=== PATIENT | female | born 1935 | race Hispanic/Latino ===

== ENCOUNTER 2017-08-23 10:21 | Emergency (ER) | payer OTHER ==
[~2017-08-23 10:21] MED LIST: LISI-613 PO; MULT-1250 PO; PANT40TA25 PO
[2017-08-23 10:52] LABS: BASOPHILS % (AUTO) 0.4 % (0.0-5.0); EOSINOPHILS % (AUTO) 0.6 % (0.0-8.0); HEMATOCRIT 30.4 % (36-48); LYMPHOCYTES % (AUTO) 24.8 % (21.0-51.0); MEAN CORPUSCULAR HEMOGLOBIN 31.2 pg (27.0-33.0); MEAN CORPUSCULAR HGB CONC 34.1 g/dL (32.0-36.0); MEAN CORPUSCULAR VOLUME 91.4 fL (79-99); MONOCYTES % (AUTO) 7.7 % (3.0-13.0); NEUTROPHILS % (AUTO) 66.5 % (40.0-77.0); PLATELET COUNT (AUTO) 189 K/uL (130-400); RED BLOOD CELL COUNT(AUTO) 3.32 MIL/uL (4.00-5.50); RED CELL DISTRIBUTION WIDTH 13.5 % (11.0-15.5); WHITE BLOOD COUNT (AUTO) 7.2 K/uL (4.8-10.8)
[2017-08-23 10:57] LABS: CREATININE 0.9 mg/dL (0.5-1.5); POTASSIUM 4.2 mmol/L (3.5-5.1)
[2017-08-23 11:16] LABS: ALBUMIN 2.6 g/dL (3.5-5.0); BILIRUBIN,TOTAL 0.2 mg/dL (0.2-1.0); TOTAL PROTEIN, SERUM 6.6 g/dL (6.0-8.3)
[2017-08-23 11:22] LABS: CREATINE KINASE MB < 0.5 ng/mL (0.5-3.6); CREATINE KINASE, TOTAL 31 U/L (21-232)
[2017-08-23 13:29] LABS: APPEARANCE,URINE Clear (CLEAR); BILIRUBIN,URINE Negative (NEGATIVE); COLOR,URINE Yellow (YELLOW); GLUCOSE, URINE (UA) Negative (NEGATIVE); KETONES,URINE Negative (NEGATIVE); LEUKOCYTE ESTERASE ,URINE Small (NEGATIVE); NITRATE,URINE Negative (NEGATIVE); OCCULT BLOOD,URINE Small (NEGATIVE); PROTEIN,URINE Negative (NEGATIVE); UROBILINOGEN,URINE 0.2 mg/dL (0.2-1.0)
[2017-08-23 14:04] LABS: BACTERIA,URINE Rare /HPF (None Seen); SQUAMOUS EPITHELIAL CELL,UR Rare /LPF (0-2); WBC,URINE 0-1 /HPF (0-1)
== END 2017-08-23 14:36 | disposition home or self-care (01) ==
LOC: EDH 10:21
DX: R07.9 Chest pain, unspecified (principal); M79.1 Myalgia; I10 Essential (primary) hypertension; K21.9 Gastro-esophageal reflux disease without esophagitis; K50.90 Crohn's disease, unspecified, without complications; Z90.49 Acquired absence of other specified parts of digestive tract; Z98.890 Other specified postprocedural states
CPT/HCPCS: 36415; 71045; 80053; 81001; 82550; 82553; 84484; 85025; 93005

== ENCOUNTER 2017-08-28 23:27 | Observation (INO) | payer OTHER ==
[~2017-08-28] VITALS: Ht 154.9 cm; Wt 54.4 kg
[2017-08-28] MEDS ORDERED: ONDANSETRON HCL MDV 20ML 2 MG/ML VIAL ONE (23:46)
[2017-08-28] MEDS ORDERED: SODIUM CHLORIDE 0.9% 1000ML 1,000 ML IV ONE (23:46)
[2017-08-28] MEDS ORDERED: MORPHINE SULFATE 4 MG/1ML SYG ONE (23:47)
[2017-08-29 00:08] LABS: BASOPHILS % (AUTO) 0.3 % (0.0-5.0); EOSINOPHILS % (AUTO) 0.1 % (0.0-8.0); HEMATOCRIT 34.4 % (36-48); LYMPHOCYTES % (AUTO) 6.9 % (21.0-51.0); MEAN CORPUSCULAR HGB CONC 33.7 g/dL (32.0-36.0); MEAN CORPUSCULAR VOLUME 91.9 fL (79-99); MONOCYTES % (AUTO) 3.6 % (3.0-13.0); NEUTROPHILS % (AUTO) 89.1 % (40.0-77.0); PLATELET COUNT (AUTO) 201 K/uL (130-400); RED BLOOD CELL COUNT(AUTO) 3.74 MIL/uL (4.00-5.50); RED CELL DISTRIBUTION WIDTH 13.7 % (11.0-15.5); WHITE BLOOD COUNT (AUTO) 17.3 K/uL (4.8-10.8)
[2017-08-29 00:17] LABS: POTASSIUM 3.9 mmol/L (3.5-5.1)
[2017-08-29 00:19] LABS: INR 0.93 (0.85-1.15); PARTIAL THROMBOPLASTIN TIME 24.3 SEC (26.3-35.5); PROTHROMBIN TIME 9.8 SEC (9.6-11.6)
[2017-08-29 00:21] LABS: ALBUMIN 2.9 g/dL (3.5-5.0); BILIRUBIN,TOTAL 0.2 mg/dL (0.2-1.0); TOTAL PROTEIN, SERUM 7.2 g/dL (6.0-8.3)
[2017-08-29] MEDS ORDERED: CEFTRIAXONE SODIUM 2 GM VIAL ONE (03:17)
[2017-08-29] MEDS ORDERED: SODIUM CHLORIDE 0.9% 1000ML 1,000 ML IV ONE ×2 (04:09→16:59)
[2017-08-29] MEDS ORDERED: MORPHINE SULFATE 2 MG/ML 1ML SYG ONE (07:39)
[2017-08-29] MEDS ORDERED: SODIUM CHLORIDE 0.9% 1000ML 1,000 ML IV SCH (13:00)
[2017-08-29] MEDS ORDERED: DIATR MEGLU/DIATRIZOATE SODIUM 30 ML BOTTLE ONE (13:07)
[2017-08-29 16:00] VITALS: BP 139/66
[2017-08-29 16:13] LABS: HEMATOCRIT 32.3 % (36-48); MEAN CORPUSCULAR HEMOGLOBIN 31.1 pg (27.0-33.0); MEAN CORPUSCULAR HGB CONC 33.7 g/dL (32.0-36.0); MEAN CORPUSCULAR VOLUME 92.2 fL (79-99); PLATELET COUNT (AUTO) 221 K/uL (130-400); RED BLOOD CELL COUNT(AUTO) 3.51 MIL/uL (4.00-5.50); RED CELL DISTRIBUTION WIDTH 13.7 % (11.0-15.5); WHITE BLOOD COUNT (AUTO) 14.4 K/uL (4.8-10.8)
[2017-08-29] MEDS ORDERED: AMLO5TAB2 PO (17:04)
[2017-08-29] MEDS ORDERED: HYDRALAZINE HCL 20 MG/ML VIAL IV PRN (17:15)
[2017-08-29] MEDS ORDERED: MORPHINE SULFATE 2 MG/ML 1ML SYG IVP PRN (17:15)
[2017-08-29] MEDS ORDERED: ONDANSETRON HCL 4 MG/2 ML VIAL IVP PRN (17:30)
[2017-08-29] MEDS ORDERED: ACETAMINOPHEN 325 MG TAB PO PRN ×2 (17:30)
[2017-08-29] MEDS ORDERED: POTASSIUM CHLORIDE 20 MEQ ERTAB PO PRN (17:30)
[2017-08-29] MEDS ORDERED: NITROGLYCERIN 0.4 MG SL TAB SL PRN (17:30)
[2017-08-29] MEDS ORDERED: LIDOCAINE HCL-MPF 1% 2ML VIAL IJ PRN (17:30)
[2017-08-29] MEDS ORDERED: POTASSIUM CHLORIDE 10% ELIXIR 20 MEQ/15 ML UDCUP PO PRN (17:30)
[2017-08-29] MEDS ORDERED: POTASSIUM CHLORIDE 20MEQ/100ML 100 ML IV PRN (17:30)
[2017-08-29 19:35] VITALS: BP 120/57
[2017-08-29] MEDS: FAMOTIDINE/PF 20 MG/2 ML VIAL IV SCH (21:47)
[2017-08-30] VITALS (7 sets, daily range): BP systolic 110–141; BP diastolic 47–67
[2017-08-30 06:27] LABS: HEMATOCRIT 25.3 % (36-48); MEAN CORPUSCULAR HEMOGLOBIN 32.9 pg (27.0-33.0); MEAN CORPUSCULAR HGB CONC 35.4 g/dL (32.0-36.0); MEAN CORPUSCULAR VOLUME 92.8 fL (79-99); PLATELET COUNT (AUTO) 156 K/uL (130-400); RED BLOOD CELL COUNT(AUTO) 2.72 MIL/uL (4.00-5.50); RED CELL DISTRIBUTION WIDTH 13.8 % (11.0-15.5); WHITE BLOOD COUNT (AUTO) 6.9 K/uL (4.8-10.8)
[2017-08-30 06:45] LABS: CREATININE 0.9 mg/dL (0.5-1.5); POTASSIUM 3.8 mmol/L (3.5-5.1)
[2017-08-30] MEDS: FAMOTIDINE/PF 20 MG/2 ML VIAL IV SCH ×2 (09:05→20:25)
[2017-08-30] MEDS: PANTOPRAZOLE 40 MG/VIAL IVP SCH (09:28)
[2017-08-31 03:05] VITALS: BP 128/64
[2017-08-31 08:00] VITALS: BP 124/54
[2017-08-31] MEDS: FAMOTIDINE/PF 20 MG/2 ML VIAL IV SCH (08:22)
[2017-08-31] MEDS: PANTOPRAZOLE 40 MG/VIAL IVP SCH (08:23)
[2017-08-31 12:00] VITALS: BP 126/50
== END 2017-08-31 12:54 | disposition home or self-care (01) ==
LOC: EDH 23:27 → EDHIP 08-29 03:55 → 3AH 08-29 15:44
PROVIDERS: ADMIT Family Medicine; ATTEND Family Medicine
DX: K21.9 Gastro-esophageal reflux disease without esophagitis (principal); I10 Essential (primary) hypertension; Z90.49 Acquired absence of other specified parts of digestive tract; K57.90 Diverticulosis of intestine, part unspecified, without perforation or abscess without bleeding; R11.2 Nausea with vomiting, unspecified
CPT/HCPCS: 36415 ×3; 74018; 74176; 80048; 80053; 83690; 85025; 85027 ×2; 85610; 85730; 87040 ×2; 93005; 96361 ×2; 96374; 96375; 96376 ×2; 99285; C9113 ×2; G0378 ×57; J0696; J2270; J3490 ×4; J7030 ×2; Q9963

== ENCOUNTER 2017-10-05 11:31 | Emergency (ER) | payer OTHER ==
[~2017-10-05 11:31] MED LIST changes: +AMLO5TAB2 PO
[2017-10-05 11:57] LABS: APPEARANCE,URINE Clear (CLEAR); BILIRUBIN,URINE Negative (NEGATIVE); COLOR,URINE Yellow (YELLOW); GLUCOSE, URINE (UA) Negative (NEGATIVE); KETONES,URINE Negative (NEGATIVE); LEUKOCYTE ESTERASE ,URINE Negative (NEGATIVE); NITRATE,URINE Negative (NEGATIVE); OCCULT BLOOD,URINE Small (NEGATIVE); PROTEIN,URINE Negative (NEGATIVE); UROBILINOGEN,URINE 0.2 mg/dL (0.2-1.0)
[2017-10-05 12:20] LABS: BACTERIA,URINE None Seen /HPF (None Seen); RBC,URINE 0-1 /HPF (0-1); SQUAMOUS EPITHELIAL CELL,UR Rare /HPF (0-2); WBC,URINE None Seen /HPF (0-1)
[2017-10-05] MEDS ORDERED: KETOROLAC TROMETHAMINE 30MG/ML ONE (12:22)
[2017-10-05] MEDS ORDERED: SODIUM CHLORIDE 0.9% 500ML 500 ML IV ONE (12:22)
[2017-10-05 12:33] LABS: CREATININE 0.9 mg/dL (0.5-1.5); POTASSIUM 3.9 mmol/L (3.5-5.1)
[2017-10-05 12:38] LABS: ALBUMIN 2.6 g/dL (3.5-5.0); BILIRUBIN,DIRECT 0.1 mg/dL (0.0-0.3); BILIRUBIN,TOTAL 0.2 mg/dL (0.2-1.0); TOTAL PROTEIN, SERUM 6.3 g/dL (6.0-8.3)
[2017-10-05 12:45] LABS: BASOPHILS % (AUTO) 0.4 % (0.0-5.0); EOSINOPHILS % (AUTO) 0.6 % (0.0-8.0); HEMATOCRIT 29.9 % (36-48); LYMPHOCYTES % (AUTO) 20.9 % (21.0-51.0); MEAN CORPUSCULAR HEMOGLOBIN 32.2 pg (27.0-33.0); MEAN CORPUSCULAR HGB CONC 35.7 g/dL (32.0-36.0); MEAN CORPUSCULAR VOLUME 90.3 fL (79-99); MONOCYTES % (AUTO) 8.9 % (3.0-13.0); NEUTROPHILS % (AUTO) 69.2 % (40.0-77.0); PLATELET COUNT (AUTO) 199 K/uL (130-400); RED BLOOD CELL COUNT(AUTO) 3.31 MIL/uL (4.00-5.50)
[2017-10-05] MEDS ORDERED: HYDROCODONE/ACETAMINOPHEN 10/325 MG TAB ONE (13:46)
== END 2017-10-05 14:30 | disposition home or self-care (01) ==
LOC: EDH 11:31
DX: M54.5 Low back pain (principal); K21.9 Gastro-esophageal reflux disease without esophagitis; F41.9 Anxiety disorder, unspecified; K50.90 Crohn's disease, unspecified, without complications; I10 Essential (primary) hypertension; Z90.49 Acquired absence of other specified parts of digestive tract; Z98.890 Other specified postprocedural states
CPT/HCPCS: 36415; 74176; 80048; 80076; 81001; 84484; 85025; 93005; 96361; 96374; 99285; J1885; J7040

== ENCOUNTER 2018-05-25 18:59 | Emergency (ER) | payer OTHER ==
[~2018-05-25 18:59] MED LIST changes: -AMLO5TAB2 PO; +AMLO5TAB7 PO
[2018-05-25 19:50] LABS: BASOPHILS % (AUTO) 0.3 % (0.0-5.0); EOSINOPHILS % (AUTO) 0.4 % (0.0-8.0); HEMATOCRIT 30.6 % (36-48); LYMPHOCYTES % (AUTO) 10.1 % (21.0-51.0); MEAN CORPUSCULAR HEMOGLOBIN 30.8 pg (27.0-33.0); MEAN CORPUSCULAR HGB CONC 33.1 g/dL (32.0-36.0); MEAN CORPUSCULAR VOLUME 93.1 fL (79-99); NEUTROPHILS % (AUTO) 83.2 % (40.0-77.0); PLATELET COUNT (AUTO) 220 K/uL (130-400); RED BLOOD CELL COUNT(AUTO) 3.29 MIL/uL (4.00-5.50); RED CELL DISTRIBUTION WIDTH 14.5 % (11.0-15.5); WHITE BLOOD COUNT (AUTO) 11.4 K/uL (4.8-10.8)
[2018-05-25] MEDS ORDERED: IOHEXOL-350 75 ML VIAL IV ONE (19:59)
[2018-05-25] MEDS ORDERED: ONDANSETRON HCL 4 MG/2 ML VIAL ONE (20:04)
[2018-05-25] MEDS ORDERED: MORPHINE SULFATE 2 MG/ML 1ML SYG ONE (20:05)
[2018-05-25] MEDS ORDERED: FAMOTIDINE/PF 20 MG/2 ML VIAL IV ONE (20:05)
[2018-05-25 20:12] LABS: APPEARANCE,URINE Clear (CLEAR); BILIRUBIN,URINE Negative (NEGATIVE); COLOR,URINE Yellow (YELLOW); GLUCOSE, URINE (UA) Negative (NEGATIVE); KETONES,URINE Negative (NEGATIVE); LEUKOCYTE ESTERASE ,URINE Trace (NEGATIVE); NITRATE,URINE Negative (NEGATIVE); OCCULT BLOOD,URINE Moderate (NEGATIVE); PROTEIN,URINE Negative (NEGATIVE); UROBILINOGEN,URINE 0.2 mg/dL (0.2-1.0)
[2018-05-25 20:14] LABS: POTASSIUM 3.9 mmol/L (3.5-5.1)
[2018-05-25 20:26] LABS: ALBUMIN 2.9 g/dL (3.5-5.0); BILIRUBIN,TOTAL 0.2 mg/dL (0.2-1.0); TOTAL PROTEIN, SERUM 6.9 g/dL (6.0-8.3)
[2018-05-25 20:37] LABS: BACTERIA,URINE Rare /HPF (None Seen); TRICHOMONAS,URINE Rare /LPF (None Seen); WBC,URINE 0-1 /HPF (0-1)
[2018-05-25 20:47] LABS: INR 0.97 (0.85-1.15); PARTIAL THROMBOPLASTIN TIME 28.5 SEC (26.3-35.5); PROTHROMBIN TIME 10.2 SEC (9.6-11.6)
[2018-05-25 21:21] LABS: B-TYPE NATRIURETIC PEPTIDE 182 pg/mL (0-100)
[2018-05-25] MEDS ORDERED: LIDOCAINE HCL 2% VISCOUS 15 ML UDCUP ONE (21:36)
[2018-05-25] MEDS ORDERED: SODIUM CHLORIDE 0.9% 1000ML 1,000 ML IV ONE (21:37)
[2018-05-25] MEDS ORDERED: MAG HYDROX/AL HYDROX/SIMETH ES 30 ML SUSP UDCUP ONE (21:37)
== END 2018-05-25 22:52 | disposition home or self-care (01) ==
LOC: EDH 18:59
DX: R10.13 Epigastric pain (principal); K21.9 Gastro-esophageal reflux disease without esophagitis; I10 Essential (primary) hypertension; F41.9 Anxiety disorder, unspecified; Z90.49 Acquired absence of other specified parts of digestive tract; Z98.890 Other specified postprocedural states
CPT/HCPCS: 36415; 74177; 80053; 81001; 82550; 83605; 83690; 83880; 84484; 85025; 85610; 85730; 93005; 96374; 96375; 99284; J2405; J3490; J7030; Q9967

== ENCOUNTER 2018-06-12 17:50 | Emergency (ER) | payer OTHER ==
[2018-06-12] MEDS ORDERED: DEXAMETHASONE SOD PHOSPHATE 10MG/ML 1ML VIAL ONE (18:51)
== END 2018-06-12 19:36 | disposition home or self-care (01) ==
LOC: EDH 17:50
DX: L23.9 Allergic contact dermatitis, unspecified cause (principal); K21.9 Gastro-esophageal reflux disease without esophagitis; I10 Essential (primary) hypertension; F41.9 Anxiety disorder, unspecified; Z90.49 Acquired absence of other specified parts of digestive tract; Z98.890 Other specified postprocedural states; Z79.899 Other long term (current) drug therapy
CPT/HCPCS: 96372; 99283; J1100

== ENCOUNTER 2018-09-04 18:43 | Emergency (ER) | payer OTHER ==
[~2018-09-04 18:43] MED LIST changes: -AMLO5TAB7 PO; +AMLO5TAB9 PO
[2018-09-04] MEDS ORDERED: MECLIZINE HCL 25 MG TABLET ONE (19:41)
[2018-09-04 19:50] LABS: BASOPHILS % (AUTO) 0.5 % (0.0-5.0); HEMATOCRIT 28.5 % (36-48); LYMPHOCYTES % (AUTO) 18.9 % (21.0-51.0); MEAN CORPUSCULAR HEMOGLOBIN 31.1 pg (27.0-33.0); MEAN CORPUSCULAR HGB CONC 33.8 g/dL (32.0-36.0); NEUTROPHILS % (AUTO) 70.6 % (40.0-77.0); PLATELET COUNT (AUTO) 191 K/uL (130-400); RED CELL DISTRIBUTION WIDTH 13.6 % (11.0-15.5); WHITE BLOOD COUNT (AUTO) 6.8 K/uL (4.8-10.8)
[2018-09-04 20:05] LABS: INR 0.94 (0.85-1.15); PARTIAL THROMBOPLASTIN TIME 28.7 SEC (26.3-35.5); PROTHROMBIN TIME 9.9 SEC (9.6-11.6)
[2018-09-04 20:51] LABS: POTASSIUM 4.3 mmol/L (3.5-5.1)
[2018-09-04 20:54] LABS: ALBUMIN 2.7 g/dL (3.5-5.0)
[2018-09-04 21:07] LABS: BILIRUBIN,TOTAL 0.1 mg/dL (0.2-1.0); TOTAL PROTEIN, SERUM 6.5 g/dL (6.0-8.3)
== END 2018-09-04 22:00 | disposition home or self-care (01) ==
LOC: EDH 18:43
DX: I10 Essential (primary) hypertension (principal); R42 Dizziness and giddiness; K21.9 Gastro-esophageal reflux disease without esophagitis; F41.9 Anxiety disorder, unspecified; K50.90 Crohn's disease, unspecified, without complications; Z90.49 Acquired absence of other specified parts of digestive tract
CPT/HCPCS: 36415; 70450; 80053; 84484; 85025; 85610; 85730; 93005; 96360; 96361

== ENCOUNTER 2018-09-10 14:58 | Emergency (ER) | payer OTHER ==
[2018-09-10] MEDS ORDERED: ALPRAZOLAM 1 MG TAB ONE (15:30)
[2018-09-10 15:40] LABS: BASOPHILS % (AUTO) 0.4 % (0.0-5.0); EOSINOPHILS % (AUTO) 0.8 % (0.0-8.0); HEMATOCRIT 26.2 % (36-48); LYMPHOCYTES % (AUTO) 17.1 % (21.0-51.0); MEAN CORPUSCULAR HEMOGLOBIN 31.4 pg (27.0-33.0); MEAN CORPUSCULAR HGB CONC 34.1 g/dL (32.0-36.0); MEAN CORPUSCULAR VOLUME 92.1 fL (79-99); MONOCYTES % (AUTO) 9.5 % (3.0-13.0); NEUTROPHILS % (AUTO) 72.2 % (40.0-77.0); PLATELET COUNT (AUTO) 196 K/uL (130-400); RED BLOOD CELL COUNT(AUTO) 2.84 MIL/uL (4.00-5.50); RED CELL DISTRIBUTION WIDTH 13.6 % (11.0-15.5); WHITE BLOOD COUNT (AUTO) 6.3 K/uL (4.8-10.8)
[2018-09-10 15:51] LABS: POTASSIUM 3.7 mmol/L (3.5-5.1)
[2018-09-10 15:56] LABS: ALBUMIN 2.6 g/dL (3.5-5.0); BILIRUBIN,TOTAL 0.2 mg/dL (0.2-1.0); TOTAL PROTEIN, SERUM 6.1 g/dL (6.0-8.3)
[2018-09-10 17:33] LABS: CREATININE 0.9 mg/dL (0.5-1.5); POTASSIUM 4.1 mmol/L (3.5-5.1)
[2018-09-10 17:36] LABS: APPEARANCE,URINE Clear (CLEAR); BILIRUBIN,URINE Negative (NEGATIVE); COLOR,URINE Yellow (YELLOW); GLUCOSE, URINE (UA) Negative (NEGATIVE); KETONES,URINE Negative (NEGATIVE); LEUKOCYTE ESTERASE ,URINE Negative (NEGATIVE); NITRATE,URINE Negative (NEGATIVE); OCCULT BLOOD,URINE Trace (NEGATIVE); PROTEIN,URINE Negative (NEGATIVE); UROBILINOGEN,URINE 0.2 mg/dL (0.2-1.0)
[2018-09-10 17:52] LABS: RBC,URINE 0-1 /HPF (0-1); WBC,URINE 0-1 /HPF (0-1)
[2018-09-10 17:53] LABS: BACTERIA,URINE None Seen /HPF (None Seen); SQUAMOUS EPITHELIAL CELL,UR Rare /HPF (0-2); TRANSITIONAL EPI CELLS,URINE Rare /HPF (None Seen)
== END 2018-09-10 18:11 | disposition home or self-care (01) ==
LOC: EDH 14:58
DX: R51 Headache (principal); M54.2 Cervicalgia; E87.1 Hypo-osmolality and hyponatremia; I10 Essential (primary) hypertension; K21.9 Gastro-esophageal reflux disease without esophagitis; F41.9 Anxiety disorder, unspecified; Z90.49 Acquired absence of other specified parts of digestive tract
CPT/HCPCS: 36415; 80048; 80053; 81001; 84300; 84484; 85025; 93005

== ENCOUNTER 2019-02-20 14:14 | Emergency (ER) | payer OTHER ==
[2019-02-20] MEDS ORDERED: SODIUM CHLORIDE 0.9% 500ML 500 ML IV ONE (14:58)
[2019-02-20 15:02] LABS: BASOPHILS % (AUTO) 0.2 % (0.0-5.0); EOSINOPHILS % (AUTO) 1.2 % (0.0-8.0); LYMPHOCYTES % (AUTO) 14.2 % (21.0-51.0); MEAN CORPUSCULAR HEMOGLOBIN 32.3 pg (27.0-33.0); MEAN CORPUSCULAR HGB CONC 34.6 g/dL (32.0-36.0); MEAN CORPUSCULAR VOLUME 93.2 fL (79-99); MONOCYTES % (AUTO) 10.9 % (3.0-13.0); NEUTROPHILS % (AUTO) 73.5 % (40.0-77.0); PLATELET COUNT (AUTO) 182 K/uL (130-400); RED BLOOD CELL COUNT(AUTO) 2.68 MIL/uL (4.00-5.50); RED CELL DISTRIBUTION WIDTH 13.9 % (11.0-15.5); WHITE BLOOD COUNT (AUTO) 6.3 K/uL (4.8-10.8)
[2019-02-20 15:03] LABS: APPEARANCE,URINE Clear (CLEAR); BILIRUBIN,URINE Negative (NEGATIVE); COLOR,URINE Yellow (YELLOW); GLUCOSE, URINE (UA) Negative (NEGATIVE); KETONES,URINE Negative (NEGATIVE); LEUKOCYTE ESTERASE ,URINE Trace (NEGATIVE); NITRATE,URINE Negative (NEGATIVE); OCCULT BLOOD,URINE Negative (NEGATIVE); PROTEIN,URINE Negative (NEGATIVE)
[2019-02-20 15:11] LABS: CREATININE 1.2 mg/dL (0.5-1.5); POTASSIUM 4.6 mmol/L (3.5-5.1)
[2019-02-20 15:14] LABS: BACTERIA,URINE Few /HPF (None Seen); MUCUS,URINE Few LPF (None Seen); SQUAMOUS EPITHELIAL CELL,UR 0-2 /HPF (0-2)
[2019-02-20 15:16] LABS: ALBUMIN 2.4 g/dL (3.5-5.0); BILIRUBIN,TOTAL 0.2 mg/dL (0.2-1.0); TOTAL PROTEIN, SERUM 6.3 g/dL (6.0-8.3)
[2019-02-20] MEDS ORDERED: AMOXICILLIN/POTASSIUM CLAV 875-125 TABLET PO ONE (15:58)
== END 2019-02-20 17:10 | disposition home or self-care (01) ==
LOC: EDH 14:14
DX: K57.32 Diverticulitis of large intestine without perforation or abscess without bleeding (principal); K21.9 Gastro-esophageal reflux disease without esophagitis; F41.9 Anxiety disorder, unspecified; I10 Essential (primary) hypertension
CPT/HCPCS: 36415; 74176; 80053; 81001; 83690; 85025; 87088; 93005; 99285; J7040

== ENCOUNTER → 2019-04-16 | Outpatient (CLI) | payer OTHER | END | disposition home or self-care (01) | LOC: SHCH 11:08 | PROVIDERS: ATTEND Internal Medicine Cardiovascular Disease | DX: I10 Essential (primary) hypertension (principal) | CPT/HCPCS: 93306 ==

== ENCOUNTER → 2019-04-20 | Outpatient (CLI) | payer OTHER ==
[~2019-04-20] VITALS: Ht 157.5 cm; Wt 52.6 kg
[~2019-04-20] MED LIST changes: +REGADENOSON 0.4 MG/5 ML PF SYG IVP SCH
== END | disposition home or self-care (01) ==
LOC: SHCH 08:12
PROVIDERS: ATTEND Internal Medicine Cardiovascular Disease
DX: I34.1 Nonrheumatic mitral (valve) prolapse (principal)
CPT/HCPCS: 78452; 93017; 96374; A9500 ×2; J2785

== ENCOUNTER 2019-05-09 11:25 | Emergency (ER) | payer OTHER ==
[~2019-05-09 11:25] MED LIST changes: -REGADENOSON 0.4 MG/5 ML PF SYG IVP SCH
[2019-05-09] MEDS ORDERED: IPRATROPIUM/ALBUTEROL SULFATE 3 ML SOLUTION IH ONE (11:49)
[2019-05-09 12:22] LABS: APPEARANCE,URINE Clear (CLEAR); BILIRUBIN,URINE Negative (NEGATIVE); COLOR,URINE Yellow (YELLOW); GLUCOSE, URINE (UA) Negative (NEGATIVE); KETONES,URINE Negative (NEGATIVE); LEUKOCYTE ESTERASE ,URINE Negative (NEGATIVE); NITRATE,URINE Negative (NEGATIVE); OCCULT BLOOD,URINE Trace (NEGATIVE); PH,URINE 5.5 (5.0-8.0); PROTEIN,URINE Negative (NEGATIVE); UROBILINOGEN,URINE 0.2 mg/dL (0.2-1.0)
[2019-05-09 12:31] LABS: BASOPHILS % (AUTO) 0.2 % (0.0-5.0); EOSINOPHILS % (AUTO) 0.6 % (0.0-8.0); HEMATOCRIT 31.2 % (36-48); MEAN CORPUSCULAR HEMOGLOBIN 30.7 pg (27.0-33.0); MEAN CORPUSCULAR HGB CONC 33.3 g/dL (32.0-36.0); MEAN CORPUSCULAR VOLUME 92.3 fL (79-99); MONOCYTES % (AUTO) 7.7 % (3.0-13.0); NEUTROPHILS % (AUTO) 75.5 % (40.0-77.0); PLATELET COUNT (AUTO) 212 K/uL (130-400); RED BLOOD CELL COUNT(AUTO) 3.38 MIL/uL (4.00-5.50); WHITE BLOOD COUNT (AUTO) 10.1 K/uL (4.8-10.8)
[2019-05-09 12:40] LABS: CREATININE 1.1 mg/dL (0.5-1.5); POTASSIUM 4.1 mmol/L (3.5-5.1)
[2019-05-09 12:45] LABS: BACTERIA,URINE Rare /HPF (None Seen); RBC,URINE 0-1 /HPF (0-1); WBC,URINE None Seen /HPF (0-1)
[2019-05-09 12:57] LABS: ALBUMIN 3.1 g/dL (3.5-5.0); BILIRUBIN,TOTAL 0.3 mg/dL (0.2-1.0); TOTAL PROTEIN, SERUM 6.8 g/dL (6.0-8.3)
== END 2019-05-09 14:02 | disposition home or self-care (01) ==
LOC: EDH 11:25
DX: J40 Bronchitis, not specified as acute or chronic (principal); I10 Essential (primary) hypertension; K21.9 Gastro-esophageal reflux disease without esophagitis; F41.9 Anxiety disorder, unspecified; K50.90 Crohn's disease, unspecified, without complications
CPT/HCPCS: 36415; 71045; 80053; 81001; 85025; 87804; 94640

== ENCOUNTER 2019-05-27 06:41 | Day surgery (SDC) | payer OTHER ==
[2019-05-25 10:07] LABS: BASOPHILS % (AUTO) 0.1 % (0.0-5.0); LYMPHOCYTES % (AUTO) 19.5 % (21.0-51.0); MEAN CORPUSCULAR HGB CONC 32.2 g/dL (32.0-36.0); MEAN CORPUSCULAR VOLUME 92.9 fL (79-99); MONOCYTES % (AUTO) 8.1 % (3.0-13.0); NEUTROPHILS % (AUTO) 71.1 % (40.0-77.0); PLATELET COUNT (AUTO) 192 K/uL (130-400); WHITE BLOOD COUNT (AUTO) 8.1 K/uL (4.8-10.8)
[2019-05-25 10:12] LABS: CREATININE 0.9 mg/dL (0.5-1.5); POTASSIUM 4.2 mmol/L (3.5-5.1)
[2019-05-25 10:15] LABS: HEMATOCRIT 27.9 % (36-48); RED BLOOD CELL COUNT(AUTO) 3.01 MIL/uL (4.00-5.50)
[2019-05-25 10:18] LABS: APPEARANCE,URINE Clear (CLEAR); BILIRUBIN,URINE Negative (NEGATIVE); COLOR,URINE Yellow (YELLOW); GLUCOSE, URINE (UA) Negative (NEGATIVE); KETONES,URINE Negative (NEGATIVE); LEUKOCYTE ESTERASE ,URINE Trace (NEGATIVE); NITRATE,URINE Negative (NEGATIVE); OCCULT BLOOD,URINE Small (NEGATIVE); PROTEIN,URINE Negative (NEGATIVE); UROBILINOGEN,URINE 0.2 mg/dL (0.2-1.0)
[2019-05-25 10:20] LABS: INR 0.97 (0.85-1.15); PARTIAL THROMBOPLASTIN TIME 26.2 SEC (26.3-35.5); PROTHROMBIN TIME 10.2 SEC (9.6-11.6)
[2019-05-25 10:34] LABS: BACTERIA,URINE Rare /HPF (None Seen); RBC,URINE 0-1 /HPF (0-1); SQUAMOUS EPITHELIAL CELL,UR Rare /HPF (0-2); WBC,URINE 0-1 /HPF (0-1)
[2019-05-25 11:30] VITALS: BP 121/53
--- NOTE | 2019-05-26 13:00 | NUR ---
ABNORMAL LABS ABNORMAL LABS REPORTED TO EUGENIA SAXENA; H/H 8.9/27.9, UA LEUKEST TRACE. ORDERS FOR REPEAT CBC ON ARRIVAL DAY OF PROCEDURE.
[~2019-05-27] VITALS: Ht 154.9 cm; Wt 51.5 kg
[2019-05-27] VITALS (10 sets, daily range): BP systolic 129–154; BP diastolic 45–70
[~2019-05-27 06:41] MED LIST changes: +SODIUM CHLORIDE 0.9% 500ML 500 ML IV SCH
[2019-05-27] MEDS ORDERED: SODIUM CHLORIDE 0.9% 1000ML 1,000 ML IV ONE (06:52)
[2019-05-27 07:18] LABS: BASOPHILS % (AUTO) 0.1 % (0.0-5.0); EOSINOPHILS % (AUTO) 1.3 % (0.0-8.0); HEMATOCRIT 27.8 % (36-48); MEAN CORPUSCULAR HEMOGLOBIN 30.4 pg (27.0-33.0); MEAN CORPUSCULAR HGB CONC 32.7 g/dL (32.0-36.0); MONOCYTES % (AUTO) 7.7 % (3.0-13.0); NEUTROPHILS % (AUTO) 71.8 % (40.0-77.0); PLATELET COUNT (AUTO) 202 K/uL (130-400); RED BLOOD CELL COUNT(AUTO) 2.99 MIL/uL (4.00-5.50); RED CELL DISTRIBUTION WIDTH 14.2 % (11.0-15.5); WHITE BLOOD COUNT (AUTO) 7.1 K/uL (4.8-10.8)
[2019-05-27] MEDS ORDERED: LISI40TA4 PO (07:30)
[2019-05-27] MEDS ORDERED: LIDOCAINE HCL 2% 20ML ONE (08:24)
[2019-05-27] MEDS ORDERED: IOHEXOL-350 50ML VIAL IV ONE (08:24)
[2019-05-27] MEDS ORDERED: IOHEXOL 350 MG/ML 100ML INFUS..BTL IV ONE (08:24)
[2019-05-27] MEDS ORDERED: HEPARIN SODIUM 1000UNIT/ML 10ML VIAL ONE (08:24)
[2019-05-27] MEDS ORDERED: NITROGLYCERIN 5 MG/ML 10 ML VIAL IV ONE (08:24)
--- NOTE | 2019-05-27 08:35 | NUR ---
[facility] pt taken to [facility] for scheduled procedure , family at bedside
[2019-05-27] MEDS ORDERED: SODIUM CHLORIDE 0.9% 10 ML VIAL IVP SCH (09:45)
--- NOTE | 2019-05-27 10:05 | NUR ---
post received pt from [facility], s/p right / LHC , right groin with dstat , dressing dry and intact. no bleeding or hematoma to site. vs stable. pt instructed to keep bedrest for 8 hrs. plan of care discuss with patient /daughter. pt instructed to call nurse for any assitance needed or bedpan. call light within reach.
--- NOTE | 2019-05-27 12:25 | NUR ---
report report given to Michelle Anglin RN
--- NOTE | 2019-05-27 12:27 | NUR ---
md Tomasz Parish PA for DR. Bergeron paged to notify him that patient c/o urine distention, states wants to urinate , but unable because shes bedrest. awaiting for call back
--- NOTE | 2019-05-27 12:50 | NUR ---
GOT REPORT FROM ISIAH DUNHAM AT 1230, PT IN BED STABLE, C/O OF URINE URGENCY, NOTED BLADDER DISTENDED , TURN ON FACET WATER AND PLACED A WARM WASH TOWEL AND PLACED ON PT BLADDER, HOWEVER PT STILL NOT ABLE TO VOID, BENIGNO BELLO CALLED BACK AT 1250 AND NEW ORDER TO STRAIGHT CATH TIMES ONCE NOW. AT 1252 STRAIGHT CATH PATIENT AND A TOTAL OF 900CC OF URINE WAS REMOVED, PT VOICED " SHE WAS MORE RELAXED", WILL CONT TO MONITOR.
[2019-05-27] MEDS ORDERED: ACETAMINOPHEN-CODEINE 300/30MG TAB PO ONE (16:30)
== END 2019-05-27 17:55 | disposition home or self-care (01) ==
LOC: DAH 06:41
PROVIDERS: ATTEND Internal Medicine Cardiovascular Disease
DX: I20.8 Other forms of angina pectoris (principal); I35.0 Nonrheumatic aortic (valve) stenosis; K21.9 Gastro-esophageal reflux disease without esophagitis; I11.9 Hypertensive heart disease without heart failure; Z79.899 Other long term (current) drug therapy; Z72.89 Other problems related to lifestyle; Z96.642 Presence of left artificial hip joint; Z98.890 Other specified postprocedural states; Z79.01 Long term (current) use of anticoagulants; Z82.49 Family history of ischemic heart disease and other diseases of the circulatory system; Z82.3 Family history of stroke
CPT/HCPCS: 36415 ×2; 71045; 80048; 81001; 85025 ×2; 85610; 85730; 93005; 93460; A4215; A4216; A4221; A4222; A4223 ×3; A4606; A4663; C1769 ×2; C1894 ×2; J1644; J3490 ×2; J7030; Q9965; Q9967 ×2

== ENCOUNTER → 2019-11-02 | Outpatient (CLI) | payer OTHER ==
[~2019-11-02] MED LIST changes: -LISI-613 PO; +LISI40TA4 PO; -MULT-1250 PO; -SODIUM CHLORIDE 0.9% 500ML 500 ML IV SCH
== END | disposition home or self-care (01) ==
LOC: SHCH 08:43
PROVIDERS: ATTEND Internal Medicine Cardiovascular Disease
DX: R00.2 Palpitations (principal)
CPT/HCPCS: 93306; 93356

== ENCOUNTER 2020-06-12 17:09 | Inpatient (IN) | payer OTHER ==
[~2020-06-12] VITALS: Ht 157.5 cm; Wt 49.9 kg
[~2020-06-12 17:09] MED LIST changes: +AMLO-257 PO; -AMLO5TAB9 PO; -LISI40TA4 PO; +LISI40TA9 PO; -PANT40TA25 PO; +PANT40TA54 PO
[2020-06-12 17:34] LABS: ABG BASE EXCESS -1.6 mmol/L (-2.0-3.0); ABG HCO3 19.7 mmol/L (21.0-28.0); ABG OXYGEN SATURATION 80.2 % (95.0-99.0); ABG PCO2 26 mmHg (32-45)
[2020-06-12 17:36] LABS: EOSINOPHILS % (AUTO) 0.1 % (0.0-8.0); HEMATOCRIT 28.7 % (36-48); LYMPHOCYTES % (AUTO) 5.4 % (21.0-51.0); MEAN CORPUSCULAR HEMOGLOBIN 30.9 pg (27.0-33.0); MEAN CORPUSCULAR HGB CONC 33.1 g/dL (32.0-36.0); MEAN CORPUSCULAR VOLUME 93.5 fL (79-99); MONOCYTES % (AUTO) 2.1 % (3.0-13.0); PLATELET COUNT (AUTO) 171 K/uL (130-400); RED BLOOD CELL COUNT(AUTO) 3.07 MIL/uL (4.00-5.50); RED CELL DISTRIBUTION WIDTH 14.1 % (11.0-15.5); WHITE BLOOD COUNT (AUTO) 9.1 K/uL (4.8-10.8)
[2020-06-12 17:51] LABS: INR 1.07 (0.85-1.15); PROTHROMBIN TIME 11.4 SEC (9.6-11.6)
[2020-06-12 17:52] LABS: PARTIAL THROMBOPLASTIN TIME 30.2 SEC (26.3-35.5)
[2020-06-12 17:56] LABS: CREATININE 0.9 mg/dL (0.5-1.5)
[2020-06-12 18:00] LABS: BILIRUBIN,TOTAL 0.5 mg/dL (0.2-1.0); TOTAL PROTEIN, SERUM 6.4 g/dL (6.0-8.3)
[2020-06-12] MEDS ORDERED: DEXAMETHASONE SOD PHOSPHATE 4 MG/ML 1ML VIAL IVP STA (18:44)
[2020-06-12] MEDS ORDERED: LACTULOSE 20 GM/30 ML UDCUP PO PRN (18:45)
[2020-06-12] MEDS ORDERED: PHARMACY COMMUNICATION***REMDESIVIR ORDER MISC SCH (18:45)
[2020-06-12] MEDS ORDERED: ERGOCALCIFEROL (VITAMIN D2) 50,000 UNIT CAPSULE PO ONE (18:45)
[2020-06-12] MEDS: DEXAMETHASONE SOD PHOSPHATE 4 MG/ML 1ML VIAL IVP SCH (18:45)
[2020-06-12] MEDS ORDERED: KCL 20 MEQ ERTAB PO PRN (18:45)
[2020-06-12] MEDS ORDERED: ONDANSETRON 4MG INJ IV PRN (18:45)
[2020-06-12] MEDS ORDERED: LIDOCAINE HCL-MPF 1% 2ML VIAL IV PRN (18:45)
[2020-06-12] MEDS ORDERED: DOXYCYCLINE 100MG+NS 250ML IV SCH (18:45)
[2020-06-12] MEDS ORDERED: POTASSIUM CHLORIDE 10MEQ/100ML 100 ML IV PRN (18:45)
[2020-06-12] MEDS: CEFTRIAXONE 1G VIAL IVP SCH (18:45)
[2020-06-12] MEDS ORDERED: ACETAMINOPHEN 325 MG TAB PO PRN ×2 (18:45)
[2020-06-12] MEDS ORDERED: SOLU-MEDROL 40MG VIAL ONE (18:48)
[2020-06-12] MEDS ORDERED: AZITHROMYCIN 500MG+NS 250ML 250 ML IV ONE ×2 (18:49→18:50)
[2020-06-12] MEDS ORDERED: 0.9%NACL 1000ML 1,000 ML IV ONE (18:49)
[2020-06-12] MEDS ORDERED: ALBUTEROL INHALER 90MCG/INH IH ONE (18:50)
[2020-06-12] MEDS ORDERED: IOHEXOL 350 MG/ML 100ML INFUS..BTL IV ONE (19:05)
[2020-06-12 20:26] LABS: CRP QUANTITATIVE 356.2 mg/L (0.00-9.0)
[2020-06-12] MEDS ORDERED: ENOXAPARIN SODIUM 60 MG/0.6 ML SQ SCH (21:00)
[2020-06-12] MEDS: DOXYCYCLINE 100MG+NS 250ML 250 ML IV SCH (21:00)
[2020-06-12] MEDS: ALBUTEROL INHALER 90MCG/INH IH SCH (22:00)
[2020-06-13] MEDS ORDERED: ERGOCALCIFEROL (VITAMIN D2) 50,000 UNIT CAPSULE ONE (01:37)
[2020-06-13] MEDS ORDERED: DEXAMETHASONE SOD PHOSPHATE 10MG/ML 1ML VIAL ONE ×2 (01:37→17:34)
[2020-06-13] MEDS ORDERED: DOXYCYCLINE 100MG+NS 250ML 250 ML IV ONE ×2 (01:37→22:05)
[2020-06-13] MEDS ORDERED: CEFTRIAXONE 1G VIAL ONE ×2 (01:38→17:34)
[2020-06-13] MEDS ORDERED: FAMOTIDINE 20MG VIAL IV ONE ×2 (01:38→09:18)
[2020-06-13] MEDS ORDERED: ALBUTEROL INHALER 90MCG/INH IH ONE (01:58)
[2020-06-13] MEDS: ALBUTEROL INHALER 90MCG/INH IH SCH ×6 (02:00→22:00)
[2020-06-13 03:49] LABS: ABG BASE EXCESS -3.2 mmol/L (-2.0-3.0); ABG HCO3 19.7 mmol/L (21.0-28.0); ABG OXYGEN SATURATION 97.7 % (95.0-99.0); ABG PCO2 30 mmHg (32-45)
[2020-06-13 04:51] LABS: HEMATOCRIT 25.6 % (36-48); LYMPHOCYTES % (AUTO) 6.7 % (21.0-51.0); MEAN CORPUSCULAR HEMOGLOBIN 30.5 pg (27.0-33.0); MEAN CORPUSCULAR HGB CONC 32.4 g/dL (32.0-36.0); MEAN CORPUSCULAR VOLUME 94.1 fL (79-99); MONOCYTES % (AUTO) 0.8 % (3.0-13.0); NEUTROPHILS % (AUTO) 92.2 % (40.0-77.0); PLATELET COUNT (AUTO) 162 K/uL (130-400); RED BLOOD CELL COUNT(AUTO) 2.72 MIL/uL (4.00-5.50); RED CELL DISTRIBUTION WIDTH 13.9 % (11.0-15.5)
[2020-06-13 05:10] LABS: ALBUMIN 1.9 g/dL (3.5-5.0); BILIRUBIN,TOTAL 0.4 mg/dL (0.2-1.0); CREATININE 0.9 mg/dL (0.5-1.5); POTASSIUM 3.3 mmol/L (3.5-5.1)
[2020-06-13 06:41] LABS: CRP QUANTITATIVE 118.1 mg/L (0.00-9.0)
[2020-06-13] MEDS: CEFTRIAXONE 1G VIAL IVP SCH ×2 (06:45→18:45)
[2020-06-13] MEDS ORDERED: FAMOTIDINE 20MG VIAL IV SCH (09:00)
[2020-06-13] MEDS: ASCORBIC ACID 500 MG TAB PO SCH (09:00)
[2020-06-13] MEDS: DOXYCYCLINE 100MG+NS 250ML 250 ML IV SCH ×2 (09:00→21:00)
[2020-06-13] MEDS: ZINC SULFATE 220 CAPSULE PO SCH (09:00)
[2020-06-13] MEDS ORDERED: ENOXAPARIN SODIUM 60 MG/0.6 ML SQ ONE ×2 (09:17→22:05)
[2020-06-13] MEDS ORDERED: DOXYCYCLINE HYCLATE 100 MG TABLET PO ONE (09:17)
[2020-06-13] MEDS ORDERED: ZINC SULFATE 220 CAPSULE ONE (09:18)
[2020-06-13] MEDS ORDERED: POTASSIUM CHLORIDE 10% ELIXIR 20 MEQ/15 ML UDCUP ONE (09:27)
[2020-06-13] MEDS ORDERED: ONDANSETRON 4MG INJ ONE (09:43)
[2020-06-13] MEDS ORDERED: ALPRAZOLAM 0.25 MG TABLET ONE (17:34)
[2020-06-13] MEDS ORDERED: DEXTROSE 5%-LACTATED RINGERS 1,000 ML IV SCH (18:30)
[2020-06-13] MEDS: DEXAMETHASONE SOD PHOSPHATE 4 MG/ML 1ML VIAL IVP SCH (18:45)
[2020-06-14] MEDS: ALBUTEROL INHALER 90MCG/INH IH SCH ×6 (02:00→22:00)
[2020-06-14 04:34] LABS: BASOPHILS % (AUTO) 0.1 % (0.0-5.0); LYMPHOCYTES % (AUTO) 3.4 % (21.0-51.0); MEAN CORPUSCULAR HEMOGLOBIN 30.6 pg (27.0-33.0); MEAN CORPUSCULAR HGB CONC 32.6 g/dL (32.0-36.0); MEAN CORPUSCULAR VOLUME 93.9 fL (79-99); PLATELET COUNT (AUTO) 181 K/uL (130-400); RED BLOOD CELL COUNT(AUTO) 2.45 MIL/uL (4.00-5.50); RED CELL DISTRIBUTION WIDTH 13.9 % (11.0-15.5); WHITE BLOOD COUNT (AUTO) 12.7 K/uL (4.8-10.8)
[2020-06-14 04:50] LABS: ALBUMIN 1.6 g/dL (3.5-5.0); BILIRUBIN,TOTAL 0.2 mg/dL (0.2-1.0); CRP QUANTITATIVE 146.9 mg/L (0.00-9.0); POTASSIUM 3.8 mmol/L (3.5-5.1); TOTAL PROTEIN, SERUM 5.1 g/dL (6.0-8.3)
[2020-06-14] MEDS: CEFTRIAXONE 1G VIAL IVP SCH ×2 (06:45→18:45)
[2020-06-14] MEDS ORDERED: DOXYCYCLINE 100MG+NS 250ML 250 ML IV ONE ×2 (08:55→22:01)
[2020-06-14] MEDS ORDERED: ZINC SULFATE 220 CAPSULE ONE (08:55)
[2020-06-14] MEDS ORDERED: ASCORBIC ACID 500 MG TAB ONE (08:55)
[2020-06-14] MEDS ORDERED: ENOXAPARIN SODIUM 60 MG/0.6 ML SQ ONE ×2 (08:55→22:01)
[2020-06-14] MEDS ORDERED: FAMOTIDINE 20MG VIAL IV ONE (08:56)
[2020-06-14] MEDS: DOXYCYCLINE 100MG+NS 250ML 250 ML IV SCH ×2 (09:00→21:00)
[2020-06-14] MEDS: ZINC SULFATE 220 CAPSULE PO SCH (09:00)
[2020-06-14] MEDS: ASCORBIC ACID 500 MG TAB PO SCH (09:00)
[2020-06-14] MEDS: HYDROMORPHONE HCL 2 MG TAB PO SCH (15:30)
[2020-06-14] MEDS ORDERED: COMPOUND IV REFRIGERATED 1 EACH IVSOLN MISC PRN (15:45)
[2020-06-14] MEDS ORDERED: REMDESIVIR (EUA) 520 200 MG in 0.9% NACL 250ML 250 ML IV SCH (16:00)
[2020-06-14] MEDS ORDERED: ALPRAZOLAM 0.25 MG TABLET ONE (17:24)
[2020-06-14] MEDS ORDERED: DEXAMETHASONE SOD PHOSPHATE 10MG/ML 1ML VIAL ONE (17:49)
[2020-06-14] MEDS ORDERED: CEFTRIAXONE 1G VIAL ONE (17:49)
[2020-06-14] MEDS: DEXAMETHASONE SOD PHOSPHATE 4 MG/ML 1ML VIAL IVP SCH (18:45)
[2020-06-15] MEDS: ALBUTEROL INHALER 90MCG/INH IH SCH ×6 (02:00→22:00)
[2020-06-15] MEDS: HYDROMORPHONE HCL 2 MG TAB PO SCH ×2 (03:30→15:30)
[2020-06-15 05:33] LABS: BASOPHILS % (AUTO) 0.1 % (0.0-5.0); HEMATOCRIT 21.7 % (36-48); MEAN CORPUSCULAR HEMOGLOBIN 30.6 pg (27.0-33.0); MEAN CORPUSCULAR HGB CONC 33.2 g/dL (32.0-36.0); MEAN CORPUSCULAR VOLUME 92.3 fL (79-99); MONOCYTES % (AUTO) 2.2 % (3.0-13.0); NEUTROPHILS % (AUTO) 92.3 % (40.0-77.0); PLATELET COUNT (AUTO) 146 K/uL (130-400); RED BLOOD CELL COUNT(AUTO) 2.35 MIL/uL (4.00-5.50); RED CELL DISTRIBUTION WIDTH 13.8 % (11.0-15.5); WHITE BLOOD COUNT (AUTO) 7.6 K/uL (4.8-10.8)
[2020-06-15 05:59] LABS: ALBUMIN 1.7 g/dL (3.5-5.0); BILIRUBIN,TOTAL 0.2 mg/dL (0.2-1.0); CREATININE 0.8 mg/dL (0.5-1.5); CRP QUANTITATIVE 107.9 mg/L (0.00-9.0); POTASSIUM 3.3 mmol/L (3.5-5.1); TOTAL PROTEIN, SERUM 5.1 g/dL (6.0-8.3)
[2020-06-15] MEDS: PHARMACY COMMUNICATION MISC SCH (06:00)
[2020-06-15] MEDS: CEFTRIAXONE 1G VIAL IVP SCH ×2 (06:45→18:45)
[2020-06-15] MEDS: DOXYCYCLINE 100MG+NS 250ML 250 ML IV SCH ×2 (09:00→21:00)
[2020-06-15] MEDS: ZINC SULFATE 220 CAPSULE PO SCH (09:00)
[2020-06-15] MEDS: ASCORBIC ACID 500 MG TAB PO SCH (09:00)
[2020-06-15] MEDS ORDERED: ENOXAPARIN SODIUM 60 MG/0.6 ML SQ ONE (10:22)
[2020-06-15] MEDS ORDERED: ASCORBIC ACID 500 MG TAB ONE (10:22)
[2020-06-15] MEDS ORDERED: ZINC SULFATE 220 CAPSULE ONE (10:23)
[2020-06-15] MEDS ORDERED: DOXYCYCLINE 100MG+NS 250ML 250 ML IV ONE ×2 (10:23→21:11)
[2020-06-15] MEDS ORDERED: FAMOTIDINE 20MG TAB ONE (10:23)
[2020-06-15] MEDS ORDERED: CEFTRIAXONE 1G VIAL ONE (10:24)
[2020-06-15] MEDS ORDERED: ALPRAZOLAM 0.25 MG TABLET ONE (10:32)
[2020-06-15] MEDS: PANTOPRAZOLE 40 MG/VIAL IVP SCH (10:45)
[2020-06-15] MEDS ORDERED: PHARMACY COMMUNICATION MISC SCH (11:00)
[2020-06-15] MEDS ORDERED: ENOXAPARIN SODIUM 60 MG/0.6 ML SQ SCH (11:00)
[2020-06-15 11:41] LABS: % IRON SATURATION 13.5 % (22-44)
[2020-06-15 12:02] LABS: HEMATOCRIT 24.7 % (36-48)
[2020-06-15] MEDS: REMDESIVIR (EUA) 520 100 MG in 0.9% NACL 250ML 250 ML IV SCH (16:00)
[2020-06-15] MEDS: DEXAMETHASONE SOD PHOSPHATE 4 MG/ML 1ML VIAL IVP SCH (18:45)
[2020-06-15 18:56] LABS: HEMATOCRIT 23.5 % (36-48)
[2020-06-16] MEDS ORDERED: METOPROLOL TARTRATE 1 MG/ML 5ML VIAL IV PRN (00:30)
[2020-06-16] MEDS ORDERED: ALPRAZOLAM 0.5 MG TABLET PO ONE (00:30)
[2020-06-16] MEDS ORDERED: KCL 20 MEQ ERTAB PO ONE (00:46)
[2020-06-16] MEDS ORDERED: ALPRAZOLAM 1 MG TAB ONE (00:48)
[2020-06-16] MEDS: ALBUTEROL INHALER 90MCG/INH IH SCH ×6 (02:00→22:00)
[2020-06-16] MEDS: HYDROMORPHONE HCL 2 MG TAB PO SCH ×2 (03:30→15:30)
[2020-06-16] MEDS: PHARMACY COMMUNICATION MISC SCH (06:00)
[2020-06-16] MEDS: CEFTRIAXONE 1G VIAL IVP SCH ×2 (06:45→18:45)
[2020-06-16] MEDS ORDERED: PANTOPRAZOLE 40 MG/VIAL ONE (08:49)
[2020-06-16] MEDS ORDERED: ZINC SULFATE 220 CAPSULE ONE (08:49)
[2020-06-16] MEDS ORDERED: DOXYCYCLINE 100MG+NS 250ML 250 ML IV ONE ×2 (08:49→20:54)
[2020-06-16] MEDS ORDERED: ASCORBIC ACID 500 MG TAB ONE (08:49)
[2020-06-16] MEDS: ENOXAPARIN SODIUM 60 MG/0.6 ML SQ SCH (09:00)
[2020-06-16] MEDS: DOXYCYCLINE 100MG+NS 250ML 250 ML IV SCH ×2 (09:00→21:00)
[2020-06-16] MEDS: IRON SUCROSE COMPLEX 100 MG in 0.9%NACL 50ML 50 ML IV SCH (09:00)
[2020-06-16] MEDS: PANTOPRAZOLE 40 MG/VIAL IVP SCH ×2 (09:00→10:45)
[2020-06-16] MEDS: ASCORBIC ACID 500 MG TAB PO SCH (09:00)
[2020-06-16] MEDS: ZINC SULFATE 220 CAPSULE PO SCH (09:00)
[2020-06-16 12:41] LABS: ALBUMIN 1.8 g/dL (3.5-5.0); BILIRUBIN,TOTAL 0.3 mg/dL (0.2-1.0); CREATININE 0.8 mg/dL (0.5-1.5); POTASSIUM 3.3 mmol/L (3.5-5.1); TOTAL PROTEIN, SERUM 5.5 g/dL (6.0-8.3)
[2020-06-16] MEDS: REMDESIVIR (EUA) 520 100 MG in 0.9% NACL 250ML 250 ML IV SCH (16:00)
[2020-06-16] MEDS ORDERED: ALPRAZOLAM 0.25 MG TABLET ONE (16:32)
[2020-06-16] MEDS ORDERED: ALBUTEROL INHALER 90MCG/INH IH ONE (17:56)
[2020-06-16] MEDS ORDERED: CEFTRIAXONE 1G VIAL ONE (17:57)
[2020-06-16] MEDS ORDERED: DEXAMETHASONE SOD PHOSPHATE 10MG/ML 1ML VIAL ONE (17:57)
[2020-06-16] MEDS: DEXAMETHASONE SOD PHOSPHATE 4 MG/ML 1ML VIAL IVP SCH (18:45)
[2020-06-17] VITALS (8 sets, daily range): BP systolic 105–164; BP diastolic 50–79
[2020-06-17] MEDS: KCL 20 MEQ ERTAB PO SCH ×3 (00:30→21:42)
[2020-06-17] MEDS: ALBUTEROL INHALER 90MCG/INH IH SCH ×6 (02:00→22:00)
[2020-06-17] MEDS: HYDROMORPHONE HCL 2 MG TAB PO SCH ×2 (03:30→14:52)
[2020-06-17] MEDS: CEFTRIAXONE 1G VIAL IVP SCH ×2 (05:38→22:50)
[2020-06-17] MEDS: PHARMACY COMMUNICATION MISC SCH (06:00)
[2020-06-17 06:04] LABS: HEMATOCRIT 22.6 % (36-48); LYMPHOCYTES % (AUTO) 4.9 % (21.0-51.0); MEAN CORPUSCULAR HEMOGLOBIN 30.2 pg (27.0-33.0); MEAN CORPUSCULAR HGB CONC 32.7 g/dL (32.0-36.0); MEAN CORPUSCULAR VOLUME 92.2 fL (79-99); MONOCYTES % (AUTO) 2.3 % (3.0-13.0); NEUTROPHILS % (AUTO) 92.2 % (40.0-77.0); PLATELET COUNT (AUTO) 115 K/uL (130-400); RED BLOOD CELL COUNT(AUTO) 2.45 MIL/uL (4.00-5.50); RED CELL DISTRIBUTION WIDTH 13.9 % (11.0-15.5); WHITE BLOOD COUNT (AUTO) 6.9 K/uL (4.8-10.8)
[2020-06-17 06:31] LABS: ALBUMIN 1.7 g/dL (3.5-5.0); BILIRUBIN,TOTAL 0.3 mg/dL (0.2-1.0); CREATININE 0.8 mg/dL (0.5-1.5); POTASSIUM 3.1 mmol/L (3.5-5.1); TOTAL PROTEIN, SERUM 5.2 g/dL (6.0-8.3)
[2020-06-17] MEDS: PANTOPRAZOLE 40 MG/VIAL IVP SCH ×2 (09:25→09:52)
[2020-06-17] MEDS: ASCORBIC ACID 500 MG TAB PO SCH (09:27)
[2020-06-17] MEDS: ZINC SULFATE 220 CAPSULE PO SCH (09:27)
[2020-06-17] MEDS: ENOXAPARIN SODIUM 60 MG/0.6 ML SQ SCH (09:28)
[2020-06-17] MEDS: DOXYCYCLINE 100MG+NS 250ML 250 ML IV SCH ×2 (09:29→21:00)
[2020-06-17] MEDS: POTASSIUM CHLORIDE 10% ELIXIR 20 MEQ/15 ML UDCUP PO PRN ×3 (09:58→14:25)
[2020-06-17] MEDS: IRON SUCROSE COMPLEX 100 MG in 0.9%NACL 50ML 50 ML IV SCH (10:27)
[2020-06-17] MEDS: REMDESIVIR (EUA) 520 100 MG in 0.9% NACL 250ML 250 ML IV SCH (15:47)
[2020-06-17] MEDS: NYSTATIN 100000 UNIT/ML 5ML UDCUP PO SCH ×2 (15:47→23:01)
[2020-06-17] MEDS: ALPRAZOLAM 0.5 MG TABLET PO PRN (21:40)
[2020-06-17] MEDS: DEXAMETHASONE SOD PHOSPHATE 4 MG/ML 1ML VIAL IVP SCH (22:46)
[2020-06-18 03:49] VITALS: BP 162/77
[2020-06-18 06:11] LABS: BASOPHILS % (AUTO) 0.1 % (0.0-5.0); LYMPHOCYTES % (AUTO) 3.2 % (21.0-51.0); MEAN CORPUSCULAR HEMOGLOBIN 30.9 pg (27.0-33.0); MEAN CORPUSCULAR VOLUME 90.9 fL (79-99); MONOCYTES % (AUTO) 1.5 % (3.0-13.0); NEUTROPHILS % (AUTO) 94.5 % (40.0-77.0); PLATELET COUNT (AUTO) 100 K/uL (130-400); RED BLOOD CELL COUNT(AUTO) 2.75 MIL/uL (4.00-5.50); RED CELL DISTRIBUTION WIDTH 14.4 % (11.0-15.5); WHITE BLOOD COUNT (AUTO) 9.7 K/uL (4.8-10.8)
[2020-06-18] MEDS: CEFTRIAXONE 1G VIAL IVP SCH ×2 (06:25→19:16)
[2020-06-18] MEDS: HYDROMORPHONE HCL 2 MG TAB PO SCH ×2 (06:25→15:30)
[2020-06-18] MEDS: NYSTATIN 100000 UNIT/ML 5ML UDCUP PO SCH ×3 (06:25→21:22)
[2020-06-18 06:40] LABS: ALBUMIN 1.8 g/dL (3.5-5.0); BILIRUBIN,TOTAL 0.5 mg/dL (0.2-1.0); CREATININE 0.7 mg/dL (0.5-1.5); POTASSIUM 4.1 mmol/L (3.5-5.1)
[2020-06-18 07:18] LABS: CRP QUANTITATIVE 163.7 mg/L (0.00-9.0)
[2020-06-18] MEDS: FLUCONAZOLE 200 MG/NS 100 ML 100 ML IV SCH (08:00)
[2020-06-18] MEDS: ZINC SULFATE 220 CAPSULE PO SCH (08:00)
[2020-06-18] MEDS: ASCORBIC ACID 500 MG TAB PO SCH (08:00)
[2020-06-18] MEDS: PANTOPRAZOLE 40 MG/VIAL IVP SCH ×3 (08:13→21:00)
[2020-06-18 08:27] VITALS: BP 158/65
[2020-06-18] MEDS: IRON SUCROSE COMPLEX 100 MG in 0.9%NACL 50ML 50 ML IV SCH (09:38)
[2020-06-18] MEDS: DOXYCYCLINE 100MG+NS 250ML 250 ML IV SCH ×2 (10:14→21:20)
[2020-06-18] MEDS ORDERED: COMPOUND IV MISC 1 EACH IVSOLN MISC PRN (11:15)
[2020-06-18 12:15] VITALS: BP 148/63
[2020-06-18] MEDS: FUROSEMIDE 40MG VIAL IV SCH (15:14)
[2020-06-18] MEDS: REMDESIVIR (EUA) 520 100 MG in 0.9% NACL 250ML 250 ML IV SCH (15:14)
[2020-06-18 16:25] VITALS: BP 157/66
[2020-06-18] MEDS: ALPRAZOLAM 0.5 MG TABLET PO PRN (18:50)
[2020-06-18 19:00] VITALS: BP 148/67
[2020-06-18] MEDS: DEXAMETHASONE SOD PHOSPHATE 4 MG/ML 1ML VIAL IVP SCH (19:17)
[2020-06-18] MEDS: ENOXAPARIN SODIUM 40 MG/0.4 ML SYRINGE SQ SCH (21:21)
[2020-06-18] MEDS: ALBUTEROL INHALER 90MCG/INH IH SCH (21:51)
[2020-06-18] MEDS: KCL 20 MEQ ERTAB PO SCH (22:02)
[2020-06-18 23:00] VITALS: BP 144/75
[2020-06-19] MEDS: FUROSEMIDE 40MG VIAL IV SCH (02:36)
[2020-06-19] MEDS: ALBUTEROL INHALER 90MCG/INH IH SCH ×6 (02:37→21:09)
[2020-06-19 03:00] VITALS: BP 135/69
[2020-06-19] MEDS: HYDROMORPHONE HCL 2 MG TAB PO SCH ×2 (03:30→15:30)
[2020-06-19 04:53] LABS: HEMATOCRIT 25.3 % (36-48); LYMPHOCYTES % (AUTO) 3.9 % (21.0-51.0); MEAN CORPUSCULAR HGB CONC 32.8 g/dL (32.0-36.0); MEAN CORPUSCULAR VOLUME 91.3 fL (79-99); MONOCYTES % (AUTO) 2.6 % (3.0-13.0); NEUTROPHILS % (AUTO) 92.7 % (40.0-77.0); PLATELET COUNT (AUTO) 101 K/uL (130-400); RED BLOOD CELL COUNT(AUTO) 2.77 MIL/uL (4.00-5.50); RED CELL DISTRIBUTION WIDTH 14.5 % (11.0-15.5); WHITE BLOOD COUNT (AUTO) 9.6 K/uL (4.8-10.8)
[2020-06-19 05:09] LABS: ALBUMIN 1.7 g/dL (3.5-5.0); BILIRUBIN,TOTAL 0.2 mg/dL (0.2-1.0); CREATININE 1.1 mg/dL (0.5-1.5); CRP QUANTITATIVE 120.7 mg/L (0.00-9.0); MAGNESIUM 1.7 mg/dL (1.80-2.40); PHOSPHORUS 2.9 mg/dL (2.5-4.9); POTASSIUM 4.5 mmol/L (3.5-5.1); TOTAL PROTEIN, SERUM 4.8 g/dL (6.0-8.3)
[2020-06-19] MEDS: CEFTRIAXONE 1G VIAL IVP SCH (05:55)
[2020-06-19] MEDS: NYSTATIN 100000 UNIT/ML 5ML UDCUP PO SCH ×3 (05:55→21:09)
[2020-06-19] MEDS: FLUCONAZOLE 200 MG/NS 100 ML 100 ML IV SCH (08:02)
[2020-06-19] MEDS: ASCORBIC ACID 500 MG TAB PO SCH (08:02)
[2020-06-19] MEDS: ZINC SULFATE 220 CAPSULE PO SCH (08:02)
[2020-06-19] MEDS: ENOXAPARIN SODIUM 40 MG/0.4 ML SYRINGE SQ SCH (08:04)
[2020-06-19 08:44] VITALS: BP 141/72
[2020-06-19] MEDS: DOXYCYCLINE 100MG+NS 250ML 250 ML IV SCH ×2 (09:56→21:08)
[2020-06-19] MEDS: PANTOPRAZOLE 40 MG/VIAL IVP SCH ×2 (10:11→21:08)
[2020-06-19] MEDS: IRON SUCROSE COMPLEX 100 MG in 0.9%NACL 50ML 50 ML IV SCH (11:21)
[2020-06-19 12:09] VITALS: BP 147/66
[2020-06-19] MEDS: ENOXAPARIN SODIUM 30 MG/0.3 ML SQ SCH ×2 (12:15→21:09)
[2020-06-19 16:38] VITALS: BP 125/68
[2020-06-19] MEDS: DEXAMETHASONE SOD PHOSPHATE 4 MG/ML 1ML VIAL IVP SCH (17:54)
[2020-06-19] MEDS: ALPRAZOLAM 0.5 MG TABLET PO PRN (18:53)
[2020-06-19 20:20] VITALS: BP 131/62
[2020-06-20] VITALS (7 sets, daily range): BP systolic 116–143; BP diastolic 54–80
[2020-06-20] MEDS: KCL 20 MEQ ERTAB PO SCH (00:30)
[2020-06-20] MEDS: ALBUTEROL INHALER 90MCG/INH IH SCH ×6 (02:00→21:28)
[2020-06-20] MEDS: NYSTATIN 100000 UNIT/ML 5ML UDCUP PO SCH ×3 (06:28→21:20)
[2020-06-20] MEDS: FLUCONAZOLE 200 MG/NS 100 ML 100 ML IV SCH (08:40)
[2020-06-20] MEDS: PANTOPRAZOLE 40 MG/VIAL IVP SCH ×2 (10:12→21:20)
[2020-06-20] MEDS: ZINC SULFATE 220 CAPSULE PO SCH (10:13)
[2020-06-20] MEDS: ENOXAPARIN SODIUM 30 MG/0.3 ML SQ SCH (10:13)
[2020-06-20] MEDS: IRON SUCROSE COMPLEX 100 MG in 0.9%NACL 50ML 50 ML IV SCH (10:13)
[2020-06-20] MEDS: ASCORBIC ACID 500 MG TAB PO SCH (10:13)
[2020-06-20] MEDS: DOXYCYCLINE 100MG+NS 250ML 250 ML IV SCH ×2 (11:24→21:18)
[2020-06-20] MEDS: ALPRAZOLAM 0.5 MG TABLET PO PRN (16:01)
[2020-06-20] MEDS: DEXAMETHASONE SOD PHOSPHATE 4 MG/ML 1ML VIAL IVP SCH (18:52)
[2020-06-20] MEDS: ENOXAPARIN SODIUM 40 MG/0.4 ML SYRINGE SQ SCH (21:19)
[2020-06-21] MEDS: KCL 20 MEQ ERTAB PO SCH (00:30)
[2020-06-21] MEDS: ALBUTEROL INHALER 90MCG/INH IH SCH ×6 (02:00→21:50)
[2020-06-21 03:11] VITALS: BP 136/59
[2020-06-21 05:39] LABS: BASOPHILS % (AUTO) 0.1 % (0.0-5.0); HEMATOCRIT 24.8 % (36-48); LYMPHOCYTES % (AUTO) 4.7 % (21.0-51.0); MEAN CORPUSCULAR HEMOGLOBIN 30.3 pg (27.0-33.0); MEAN CORPUSCULAR HGB CONC 32.3 g/dL (32.0-36.0); MEAN CORPUSCULAR VOLUME 93.9 fL (79-99); MONOCYTES % (AUTO) 2.9 % (3.0-13.0); NEUTROPHILS % (AUTO) 90.1 % (40.0-77.0); PLATELET COUNT (AUTO) 106 K/uL (130-400); RED BLOOD CELL COUNT(AUTO) 2.64 MIL/uL (4.00-5.50); RED CELL DISTRIBUTION WIDTH 14.2 % (11.0-15.5); WHITE BLOOD COUNT (AUTO) 9.8 K/uL (4.8-10.8)
[2020-06-21 05:53] LABS: ALBUMIN 1.7 g/dL (3.5-5.0); CRP QUANTITATIVE 35.2 mg/L (0.00-9.0); MAGNESIUM 1.8 mg/dL (1.80-2.40); PHOSPHORUS 3.7 mg/dL (2.5-4.9); POTASSIUM 4.6 mmol/L (3.5-5.1)
[2020-06-21] MEDS: NYSTATIN 100000 UNIT/ML 5ML UDCUP PO SCH ×3 (06:35→21:47)
[2020-06-21 08:26] VITALS: BP 119/67
[2020-06-21] MEDS: FLUCONAZOLE 200 MG/NS 100 ML 100 ML IV SCH (08:47)
[2020-06-21] MEDS: ZINC SULFATE 220 CAPSULE PO SCH (09:52)
[2020-06-21] MEDS: ASCORBIC ACID 500 MG TAB PO SCH (09:52)
[2020-06-21] MEDS: ENOXAPARIN SODIUM 40 MG/0.4 ML SYRINGE SQ SCH ×2 (09:53→21:46)
[2020-06-21] MEDS: PANTOPRAZOLE 40 MG/VIAL IVP SCH (09:53)
[2020-06-21] MEDS: IRON SUCROSE COMPLEX 100 MG in 0.9%NACL 50ML 50 ML IV SCH (09:53)
[2020-06-21] MEDS: DOXYCYCLINE 100MG+NS 250ML 250 ML IV SCH (10:58)
[2020-06-21 12:21] VITALS: BP 137/55
[2020-06-21 16:15] VITALS: BP 137/68
[2020-06-21 20:00] VITALS: BP 132/68
[2020-06-22] VITALS: BP 139/75
[2020-06-22] MEDS: KCL 20 MEQ ERTAB PO SCH ×2 (00:30→21:51)
[2020-06-22] MEDS: ALBUTEROL INHALER 90MCG/INH IH SCH ×6 (02:00→21:51)
[2020-06-22 04:00] VITALS: BP 139/65
[2020-06-22] MEDS: NYSTATIN 100000 UNIT/ML 5ML UDCUP PO SCH ×3 (05:23→21:49)
[2020-06-22 06:25] LABS: BASOPHILS % (AUTO) 0.3 % (0.0-5.0); EOSINOPHILS % (AUTO) 0.1 % (0.0-8.0); HEMATOCRIT 28.1 % (36-48); LYMPHOCYTES % (AUTO) 6.5 % (21.0-51.0); MEAN CORPUSCULAR HEMOGLOBIN 30.2 pg (27.0-33.0); MEAN CORPUSCULAR VOLUME 94.3 fL (79-99); MONOCYTES % (AUTO) 4.8 % (3.0-13.0); NEUTROPHILS % (AUTO) 83.7 % (40.0-77.0); NUCLEATED RED BLOOD CELLS 0.2 % (0.0-0.19); PLATELET COUNT (AUTO) 122 K/uL (130-400); RED BLOOD CELL COUNT(AUTO) 2.98 MIL/uL (4.00-5.50); RED CELL DISTRIBUTION WIDTH 14.7 % (11.0-15.5); WHITE BLOOD COUNT (AUTO) 9.1 K/uL (4.8-10.8)
[2020-06-22 08:00] VITALS: BP 156/72
[2020-06-22] MEDS: ZINC SULFATE 220 CAPSULE PO SCH (09:20)
[2020-06-22] MEDS: ASCORBIC ACID 500 MG TAB PO SCH (09:21)
[2020-06-22] MEDS: ENOXAPARIN SODIUM 40 MG/0.4 ML SYRINGE SQ SCH ×2 (09:22→21:49)
[2020-06-22] MEDS: IRON SUCROSE COMPLEX 100 MG in 0.9%NACL 50ML 50 ML IV SCH (09:24)
[2020-06-22 12:00] VITALS: BP 120/58
[2020-06-22] MEDS: ALPRAZOLAM 0.5 MG TABLET PO PRN (13:07)
[2020-06-22 16:00] VITALS: BP 127/60
[2020-06-22 20:00] VITALS: BP 142/57
[2020-06-23] VITALS: BP 144/60
[2020-06-23] MEDS: ALBUTEROL INHALER 90MCG/INH IH SCH ×3 (02:00→09:01)
[2020-06-23 04:00] VITALS: BP 129/58
[2020-06-23 05:40] LABS: BASOPHILS % (AUTO) 0.1 % (0.0-5.0); EOSINOPHILS % (AUTO) 0.3 % (0.0-8.0); HEMATOCRIT 26.7 % (36-48); LYMPHOCYTES % (AUTO) 7.4 % (21.0-51.0); MEAN CORPUSCULAR HEMOGLOBIN 30.5 pg (27.0-33.0); MEAN CORPUSCULAR HGB CONC 32.2 g/dL (32.0-36.0); MEAN CORPUSCULAR VOLUME 94.7 fL (79-99); MONOCYTES % (AUTO) 5.9 % (3.0-13.0); NEUTROPHILS % (AUTO) 84.2 % (40.0-77.0); NUCLEATED RED BLOOD CELLS 0.4 % (0.0-0.19); PLATELET COUNT (AUTO) 126 K/uL (130-400); RED BLOOD CELL COUNT(AUTO) 2.82 MIL/uL (4.00-5.50); RED CELL DISTRIBUTION WIDTH 15.2 % (11.0-15.5); WHITE BLOOD COUNT (AUTO) 7.3 K/uL (4.8-10.8)
[2020-06-23 05:59] LABS: CRP QUANTITATIVE 58.1 mg/L (0.00-9.0)
[2020-06-23] MEDS: NYSTATIN 100000 UNIT/ML 5ML UDCUP PO SCH (06:21)
[2020-06-23 08:00] VITALS: BP 125/57
[2020-06-23] MEDS: ASCORBIC ACID 500 MG TAB PO SCH (08:58)
[2020-06-23] MEDS: ZINC SULFATE 220 CAPSULE PO SCH (08:58)
[2020-06-23] MEDS: ENOXAPARIN SODIUM 40 MG/0.4 ML SYRINGE SQ SCH (08:59)
[2020-06-23 10:15] VITALS: BP 138/52
[2020-06-23] MEDS ORDERED: ALBU8.5H8 IH (12:34)
[2020-06-23] MEDS ORDERED: APIX2.5T PO (12:34)
[2020-06-23] MEDS ORDERED: DEXA6TAB PO (12:34)
[2020-06-23] MEDS ORDERED: PANT40TA55 PO (13:03)
[2020-06-23 15:05] VITALS: BP 104/50
== END 2020-06-23 16:51 | disposition home or self-care (01) | DRG 177 ==
LOC: EDH 17:09 → EDHIP 18:44 → 2DH 06-16 21:35
PROVIDERS: ADMIT Family Medicine; ATTEND Family Medicine
PROC: 5A0955A Assistance with Respiratory Ventilation, Greater than 96 Consecutive Hours, High Flow/Velocity Cannula (ICD-10-PCS; 2020-06-12)
PROC: XW13325 Transfusion of Convalescent Plasma (Nonautologous) into Peripheral Vein, Percutaneous Approach, New Technology Group 5 (ICD-10-PCS; principal; 2020-06-13)
PROC: 30233N1 Transfusion of Nonautologous Red Blood Cells into Peripheral Vein, Percutaneous Approach (ICD-10-PCS; 2020-06-17)
PROC: XW033E5 Introduction of Remdesivir Anti-infective into Peripheral Vein, Percutaneous Approach, New Technology Group 5 (ICD-10-PCS; 2020-06-18)
DX: U07.1 COVID-19 (principal); J96.01 Acute respiratory failure with hypoxia; J12.82 Pneumonia due to coronavirus disease 2019; E44.0 Moderate protein-calorie malnutrition; K50.90 Crohn's disease, unspecified, without complications; D62 Acute posthemorrhagic anemia; I50.30 Unspecified diastolic (congestive) heart failure; B37.0 Candidal stomatitis; E87.3 Alkalosis; D68.8 Other specified coagulation defects; E87.6 Hypokalemia; K21.9 Gastro-esophageal reflux disease without esophagitis; R19.5 Other fecal abnormalities; R77.8 Other specified abnormalities of plasma proteins; R13.10 Dysphagia, unspecified; I35.0 Nonrheumatic aortic (valve) stenosis; I11.0 Hypertensive heart disease with heart failure; Z68.20 Body mass index [BMI] 20.0-20.9, adult; Z86.11 Personal history of tuberculosis; Z82.49 Family history of ischemic heart disease and other diseases of the circulatory system; Z82.3 Family history of stroke; Z90.49 Acquired absence of other specified parts of digestive tract
CPT/HCPCS: 36415; 36430; 36600; 71045; 71275; 80048; 80053; 80061; 82040; 82270; 82306; 82550; 82728; 82803; 82948; 83540; 83550; 83605; 83615; 83735; 83880; 84100; 84145; 84484; 85014; 85018; 85025; 85378; 85610; 85730; 86140; 86850; 86900; 86901; 86923; 86927; 87040; 87426; 87804; 87880; 93005; 93306; 93356; 93970; 97039; C9113; G0378; J0456; J0696; J1100; J1450; J1650; J1756; J1940; J2405; J2920; J3490; J7030; J7050; P9016; Q9967

== ENCOUNTER 2022-02-14 17:13 | Emergency (ER) | payer OTHER ==
[~2022-02-14] VITALS: Ht 152.4 cm; Wt 49.0 kg
[~2022-02-14 17:13] MED LIST changes: +ALBU8.5H8 IH; +AMIO200T44 PO; -AMLO-257 PO; +APIX2.5T PO; +DEXA6TAB PO; +GABA-529 PO; +HYDR-3421 PO; -LISI40TA9 PO; +PANT40TA PO; -PANT40TA54 PO; +PANT40TA55 PO
[2022-02-14 18:19] LABS: BASOPHILS % (AUTO) 0.3 % (0.0-5.0); EOSINOPHILS % (AUTO) 0.5 % (0.0-8.0); HEMATOCRIT 27.2 % (36-48); LYMPHOCYTES % (AUTO) 14.9 % (21.0-51.0); MEAN CORPUSCULAR HEMOGLOBIN 32.3 pg (27.0-33.0); MEAN CORPUSCULAR HGB CONC 33.8 g/dL (32.0-36.0); MEAN CORPUSCULAR VOLUME 95.4 fL (79-99); MONOCYTES % (AUTO) 9.2 % (3.0-13.0); NEUTROPHILS % (AUTO) 74.7 % (40.0-77.0); PLATELET COUNT (AUTO) 242 K/uL (130-400); RED BLOOD CELL COUNT(AUTO) 2.85 MIL/uL (4.00-5.50); RED CELL DISTRIBUTION WIDTH 13.6 % (11.0-15.5); WHITE BLOOD COUNT (AUTO) 7.8 K/uL (4.8-10.8)
[2022-02-14 18:20] LABS: APPEARANCE,URINE CLEAR (CLEAR); BILIRUBIN,URINE NEGATIVE (NEGATIVE); COLOR,URINE YELLOW (YELLOW); GLUCOSE, URINE (UA) NEGATIVE (NEGATIVE); KETONES,URINE NEGATIVE (NEGATIVE); LEUKOCYTE ESTERASE ,URINE NEGATIVE (NEGATIVE); NITRATE,URINE NEGATIVE (NEGATIVE); OCCULT BLOOD,URINE TRACE-INTACT (NEGATIVE); PROTEIN,URINE NEGATIVE (NEGATIVE); UROBILINOGEN,URINE 0.2 mg/dL (0.2-1.0)
[2022-02-14 18:29] LABS: CREATININE 1.1 mg/dL (0.5-1.5); POTASSIUM 3.6 mmol/L (3.5-5.1)
[2022-02-14 18:36] LABS: B-TYPE NATRIURETIC PEPTIDE 441 pg/mL (0-100)
[2022-02-14 18:38] LABS: BACTERIA,URINE Rare /HPF (None Seen); RBC,URINE 0-1 /HPF (0-1); SQUAMOUS EPITHELIAL CELL,UR Rare /HPF (0-2); WBC,URINE 0-1 /HPF (0-1)
[2022-02-14 18:39] LABS: ALBUMIN 2.4 g/dL (3.5-5.0); TOTAL PROTEIN, SERUM 5.9 g/dL (6.0-8.3)
[2022-02-14 19:48] VITALS: BP 147/63
== END 2022-02-14 19:55 | disposition home or self-care (01) ==
LOC: EDH 17:13
DX: R07.89 Other chest pain (principal); J02.9 Acute pharyngitis, unspecified; R06.02 Shortness of breath; Z20.822 Contact with and (suspected) exposure to COVID-19; I10 Essential (primary) hypertension; Z79.01 Long term (current) use of anticoagulants; Z79.52 Long term (current) use of systemic steroids; Z79.899 Other long term (current) drug therapy
CPT/HCPCS: 99285; 71045; 87635; 83735; 84484 ×2; 80053; 83880; 85025; 81001; 36415; 93005; C9803

== ENCOUNTER 2022-06-14 13:23 | Inpatient (IN) | payer OTHER ==
[~2022-06-14] VITALS: Ht 157.5 cm; Wt 45.4 kg
[2022-06-14 16:45] LABS: BASOPHILS % (AUTO) 0.3 % (0.0-5.0); EOSINOPHILS % (AUTO) 0.3 % (0.0-8.0); HEMATOCRIT 23.2 % (36-48); LYMPHOCYTES % (AUTO) 27.7 % (21.0-51.0); MEAN CORPUSCULAR HEMOGLOBIN 33.1 pg (27.0-33.0); MEAN CORPUSCULAR HGB CONC 34.1 g/dL (32.0-36.0); MEAN CORPUSCULAR VOLUME 97.1 fL (79-99); MONOCYTES % (AUTO) 11.5 % (3.0-13.0); NEUTROPHILS % (AUTO) 59.9 % (40.0-77.0); PLATELET COUNT (AUTO) 149 K/uL (130-400); RED BLOOD CELL COUNT(AUTO) 2.39 MIL/uL (4.00-5.50); RED CELL DISTRIBUTION WIDTH 16.3 % (11.0-15.5); WHITE BLOOD COUNT (AUTO) 3.2 K/uL (4.8-10.8)
[2022-06-14 16:55] LABS: ALBUMIN 1.1 g/dL (3.5-5.0); CREATININE 1.1 mg/dL (0.5-1.5); TOTAL PROTEIN, SERUM 4.1 g/dL (6.0-8.3)
[2022-06-14 17:00] LABS: POTASSIUM 2.8 mmol/L (3.5-5.1)
[2022-06-14 17:16] LABS: INR 1.12 (0.85-1.15); PROTHROMBIN TIME 12.1 SEC (9.6-11.6)
[2022-06-14 17:18] LABS: PARTIAL THROMBOPLASTIN TIME 29.3 SEC (26.3-35.5)
[2022-06-14] MEDS ORDERED: POTASSIUM BICARB/CIT AC 25 MEQ TABLET.EFF PO ONE (17:30)
[2022-06-14] MEDS ORDERED: ACETAMINOPHEN 325 MG TAB PO PRN ×2 (19:00)
[2022-06-14] MEDS ORDERED: POTASSIUM CHLORIDE 20MEQ/100ML 100 ML IV PRN (19:00)
[2022-06-14] MEDS ORDERED: ONDANSETRON 4MG INJ IV PRN (19:00)
[2022-06-14] MEDS ORDERED: MORPHINE 4 MG SYG IV PRN (19:00)
[2022-06-14] MEDS ORDERED: MORPHINE 2 MG SYG IV PRN (19:00)
[2022-06-14] MEDS ORDERED: LIDOCAINE HCL-MPF 1% 2ML VIAL IV PRN (19:00)
[2022-06-14] MEDS: LACTATED RINGERS 1000ML 1,000 ML IV SCH (19:38)
[2022-06-14 21:11] LABS: % IRON SATURATION 17.1 % (22-44)
[2022-06-14 21:30] VITALS: BP 132/50
[2022-06-14] MEDS ORDERED: HEPARIN 5,000 UNIT VIAL ONE (21:56)
[2022-06-14] MEDS: HEPARIN 25,000 UNITS/250ML D5W 250 ML IV SCH (22:06)
[2022-06-14] MEDS ORDERED: MECL-226 PO (22:25)
[2022-06-14] MEDS ORDERED: AZAT50TA17 PO (22:25)
[2022-06-14] MEDS ORDERED: AMIO100T4 PO (22:25)
[2022-06-14] MEDS ORDERED: METO25TA6 PO (22:25)
[2022-06-14] MEDS ORDERED: FURO20TA6 PO (22:25)
[2022-06-14 22:31] LABS: APPEARANCE,URINE CLOUDY (CLEAR); BILIRUBIN,URINE NEGATIVE (NEGATIVE); COLOR,URINE YELLOW (YELLOW); GLUCOSE, URINE (UA) NEGATIVE (NEGATIVE); KETONES,URINE NEGATIVE (NEGATIVE); LEUKOCYTE ESTERASE ,URINE 500 Leu/uL (NEGATIVE); NITRATE,URINE NEGATIVE (NEGATIVE); OCCULT BLOOD,URINE NEGATIVE (NEGATIVE); PH,URINE 5.5 (5.0-8.0); PROTEIN,URINE 20 mg/dL (NEGATIVE)
[2022-06-14 22:39] LABS: BACTERIA,URINE FEW /HPF (None Seen); MUCUS,URINE RARE LPF (None Seen); SQUAMOUS EPITHELIAL CELL,UR FEW /HPF (0-2)
[2022-06-15] VITALS: BP 117/47
[2022-06-15] MEDS: KCL 20 MEQ ERTAB PO PRN (01:33)
[2022-06-15 04:00] VITALS: BP 132/55
[2022-06-15] MEDS: POTASSIUM CHLORIDE 10% ELIXIR 20 MEQ/15 ML UDCUP PO PRN (04:00)
[2022-06-15 05:12] LABS: BASOPHILS % (AUTO) 0.3 % (0.0-5.0); EOSINOPHILS % (AUTO) 0.3 % (0.0-8.0); HEMATOCRIT 24.8 % (36-48); LYMPHOCYTES % (AUTO) 33.2 % (21.0-51.0); MEAN CORPUSCULAR HEMOGLOBIN 32.8 pg (27.0-33.0); MEAN CORPUSCULAR HGB CONC 32.7 g/dL (32.0-36.0); MEAN CORPUSCULAR VOLUME 100.4 fL (79-99); MONOCYTES % (AUTO) 12.2 % (3.0-13.0); NEUTROPHILS % (AUTO) 53.7 % (40.0-77.0); PLATELET COUNT (AUTO) 143 K/uL (130-400); RED BLOOD CELL COUNT(AUTO) 2.47 MIL/uL (4.00-5.50); RED CELL DISTRIBUTION WIDTH 16.6 % (11.0-15.5); WHITE BLOOD COUNT (AUTO) 3.4 K/uL (4.8-10.8)
[2022-06-15 05:23] LABS: MAGNESIUM 1.7 mg/dL (1.80-2.40); PHOSPHORUS 3.2 mg/dL (2.5-4.9); POTASSIUM 4.3 mmol/L (3.5-5.1)
[2022-06-15] MEDS: MAGNESIUM 2GM PREMIX 50ML 50 ML IV PRN ×3 (05:56→09:05)
[2022-06-15 07:50] VITALS: BP 134/60
[2022-06-15] MEDS: FAMOTIDINE 20MG TAB PO SCH (08:56)
[2022-06-15 11:15] VITALS: BP 106/61
[2022-06-15 17:00] VITALS: BP 119/52
[2022-06-15] MEDS: LACTATED RINGERS 1000ML 1,000 ML IV SCH (19:00)
[2022-06-15 20:00] VITALS: BP 95/45
[2022-06-16] VITALS: BP 116/55
[2022-06-16 04:00] VITALS: BP 115/51
[2022-06-16 05:24] LABS: EOSINOPHILS % (AUTO) 0.3 % (0.0-8.0); HEMATOCRIT 22.8 % (36-48); LYMPHOCYTES % (AUTO) 30.8 % (21.0-51.0); MEAN CORPUSCULAR HEMOGLOBIN 32.9 pg (27.0-33.0); MEAN CORPUSCULAR HGB CONC 33.3 g/dL (32.0-36.0); MEAN CORPUSCULAR VOLUME 98.7 fL (79-99); MONOCYTES % (AUTO) 12.7 % (3.0-13.0); NEUTROPHILS % (AUTO) 55.6 % (40.0-77.0); PLATELET COUNT (AUTO) 155 K/uL (130-400); RED BLOOD CELL COUNT(AUTO) 2.31 MIL/uL (4.00-5.50); RED CELL DISTRIBUTION WIDTH 16.8 % (11.0-15.5); WHITE BLOOD COUNT (AUTO) 3.4 K/uL (4.8-10.8)
[2022-06-16 05:38] LABS: CREATININE 1.1 mg/dL (0.5-1.5); POTASSIUM 3.5 mmol/L (3.5-5.1)
[2022-06-16 08:00] VITALS: BP 118/52
[2022-06-16] MEDS ORDERED: DIATR MEGLU/DIATRIZOATE SODIUM 30 ML BOTTLE ONE (08:20)
[2022-06-16] MEDS: HEPARIN 25,000 UNITS/250ML D5W 250 ML IV SCH (08:39)
[2022-06-16] MEDS: FAMOTIDINE 20MG TAB PO SCH (08:45)
[2022-06-16] MEDS ORDERED: IOHEXOL 350 MG/ML 100ML INFUS..BTL IV ONE (11:07)
[2022-06-16 11:23] VITALS: BP 139/56
[2022-06-16] MEDS ORDERED: COMPOUND IV MISC 1 EACH IVSOLN MISC PRN (11:30)
[2022-06-16 16:00] VITALS: BP 108/53
[2022-06-16] MEDS: MECLIZINE HCL 12.5 MG TABLET PO SCH ×2 (18:29→21:28)
[2022-06-16 20:00] VITALS: BP 123/52
[2022-06-16] MEDS: METOPROLOL TARTRATE 25 MG TAB PO SCH (21:28)
[2022-06-17] VITALS: BP 99/75
[2022-06-17 04:00] VITALS: BP 123/56
[2022-06-17 05:46] LABS: ALBUMIN 1.1 g/dL (3.5-5.0); POTASSIUM 3.5 mmol/L (3.5-5.1); TOTAL PROTEIN, SERUM 4.1 g/dL (6.0-8.3)
[2022-06-17 06:44] LABS: BASOPHILS % (AUTO) 0.3 % (0.0-5.0); EOSINOPHILS % (AUTO) 0.3 % (0.0-8.0); HEMATOCRIT 23.2 % (36-48); LYMPHOCYTES % (AUTO) 35.4 % (21.0-51.0); MEAN CORPUSCULAR HEMOGLOBIN 33.5 pg (27.0-33.0); MEAN CORPUSCULAR HGB CONC 33.6 g/dL (32.0-36.0); MEAN CORPUSCULAR VOLUME 99.6 fL (79-99); MONOCYTES % (AUTO) 11.5 % (3.0-13.0); NEUTROPHILS % (AUTO) 52.2 % (40.0-77.0); PLATELET COUNT (AUTO) 176 K/uL (130-400); RED BLOOD CELL COUNT(AUTO) 2.33 MIL/uL (4.00-5.50); WHITE BLOOD COUNT (AUTO) 3.4 K/uL (4.8-10.8)
[2022-06-17 08:00] VITALS: BP 162/72
[2022-06-17] MEDS: FUROSEMIDE 20 MG TABLET PO SCH (10:12)
[2022-06-17] MEDS: AMIODARONE 200 MG TABLET PO SCH (10:12)
[2022-06-17] MEDS: FAMOTIDINE 20MG TAB PO SCH (10:12)
[2022-06-17] MEDS: METOPROLOL TARTRATE 25 MG TAB PO SCH ×2 (10:12→20:31)
[2022-06-17] MEDS: KCL 20 MEQ ERTAB PO PRN (10:12)
[2022-06-17] MEDS: MECLIZINE HCL 12.5 MG TABLET PO SCH ×4 (10:13→20:31)
[2022-06-17] MEDS: AZATHIOPRINE 50 MG TAB PO SCH (10:13)
[2022-06-17 11:58] VITALS: BP 120/58
[2022-06-17] MEDS: NITROFURANTOIN MONOHYD/M-CRYST 100 MG CAPSULE PO SCH ×2 (12:27→20:31)
[2022-06-17] MEDS ORDERED: LOPERAMIDE 1 MG/7.5 ML UDCUP PO SCH (15:00)
[2022-06-17 16:00] VITALS: BP 115/44
[2022-06-17 17:51] LABS: INR 1.06 (0.85-1.15); PROTHROMBIN TIME 11.5 SEC (9.6-11.6)
[2022-06-17 17:53] LABS: PARTIAL THROMBOPLASTIN TIME 40.6 SEC (26.3-35.5)
[2022-06-17] MEDS ORDERED: HEPARIN 5,000 UNIT VIAL ONE (18:31)
[2022-06-17] MEDS ORDERED: HEPARIN 5,000 UNIT VIAL IV ONE ×2 (18:45→19:00)
[2022-06-17 20:00] VITALS: BP 102/50
[2022-06-17 23:54] LABS: INR 1.13 (0.85-1.15); PROTHROMBIN TIME 12.2 SEC (9.6-11.6)
[2022-06-18] VITALS: BP 125/53
[2022-06-18 00:14] LABS: PARTIAL THROMBOPLASTIN TIME > 139.0 SEC (26.3-35.5)
[2022-06-18 04:00] VITALS: BP 136/59
[2022-06-18 05:54] LABS: EOSINOPHILS % (AUTO) 0.6 % (0.0-8.0); MEAN CORPUSCULAR HEMOGLOBIN 33.3 pg (27.0-33.0); MEAN CORPUSCULAR HGB CONC 33.5 g/dL (32.0-36.0); MEAN CORPUSCULAR VOLUME 99.6 fL (79-99); MONOCYTES % (AUTO) 12.4 % (3.0-13.0); NEUTROPHILS % (AUTO) 57.7 % (40.0-77.0); PLATELET COUNT (AUTO) 162 K/uL (130-400); RED BLOOD CELL COUNT(AUTO) 2.31 MIL/uL (4.00-5.50); RED CELL DISTRIBUTION WIDTH 16.8 % (11.0-15.5); WHITE BLOOD COUNT (AUTO) 3.1 K/uL (4.8-10.8)
[2022-06-18 06:04] LABS: CREATININE 1.2 mg/dL (0.5-1.5); POTASSIUM 3.9 mmol/L (3.5-5.1)
[2022-06-18 06:07] LABS: INR 1.15 (0.85-1.15); PROTHROMBIN TIME 12.4 SEC (9.6-11.6)
[2022-06-18 06:08] LABS: PARTIAL THROMBOPLASTIN TIME 65.2 SEC (26.3-35.5)
[2022-06-18] MEDS: HEPARIN 25,000 UNITS/250ML D5W 250 ML IV SCH (06:20)
[2022-06-18 08:30] VITALS: BP 110/47
[2022-06-18] MEDS: METOPROLOL TARTRATE 25 MG TAB PO SCH ×2 (09:00→20:29)
[2022-06-18] MEDS: AMIODARONE 200 MG TABLET PO SCH (09:01)
[2022-06-18] MEDS: MECLIZINE HCL 12.5 MG TABLET PO SCH ×3 (09:02→20:29)
[2022-06-18] MEDS: AZATHIOPRINE 50 MG TAB PO SCH (09:02)
[2022-06-18] MEDS: FAMOTIDINE 20MG TAB PO SCH (09:02)
[2022-06-18] MEDS: FUROSEMIDE 20 MG TABLET PO SCH (09:02)
[2022-06-18] MEDS: NITROFURANTOIN MONOHYD/M-CRYST 100 MG CAPSULE PO SCH ×2 (09:03→20:29)
[2022-06-18 11:44] LABS: INR 1.1 (0.85-1.15); PROTHROMBIN TIME 11.9 SEC (9.6-11.6)
[2022-06-18 11:46] LABS: PARTIAL THROMBOPLASTIN TIME 64.8 SEC (26.3-35.5)
[2022-06-18 13:10] VITALS: BP 131/55
[2022-06-18 17:00] VITALS: BP 112/53
[2022-06-18 20:16] VITALS: BP 110/49
[2022-06-19 00:09] VITALS: BP 132/54
[2022-06-19 04:24] VITALS: BP 133/50
[2022-06-19 05:09] LABS: HEMATOCRIT 22.5 % (36-48); MEAN CORPUSCULAR HEMOGLOBIN 33.5 pg (27.0-33.0); MEAN CORPUSCULAR HGB CONC 32.9 g/dL (32.0-36.0); MEAN CORPUSCULAR VOLUME 101.8 fL (79-99); PLATELET COUNT (AUTO) 159 K/uL (130-400); RED BLOOD CELL COUNT(AUTO) 2.21 MIL/uL (4.00-5.50); RED CELL DISTRIBUTION WIDTH 16.5 % (11.0-15.5); WHITE BLOOD COUNT (AUTO) 2.5 K/uL (4.8-10.8)
[2022-06-19 06:32] LABS: LYMPHOCYTES % (MANUAL) 22 % (22-44); MAN.DIFF COMMENT-IMPRESSION MANUAL DIFFERENTIAL; MONOCYTES % (MANUAL) 15 % (2-9); PLATELET MORPHOLOGY COMMENT ADEQUATE; SEGMENTED NEUTROPHILS % 63 % (40-70)
[2022-06-19 08:07] VITALS: BP 135/56
[2022-06-19] MEDS: NITROFURANTOIN MONOHYD/M-CRYST 100 MG CAPSULE PO SCH ×2 (08:39→20:50)
[2022-06-19] MEDS: FUROSEMIDE 20 MG TABLET PO SCH (08:40)
[2022-06-19] MEDS: MECLIZINE HCL 12.5 MG TABLET PO SCH ×4 (08:40→20:50)
[2022-06-19] MEDS: FAMOTIDINE 20MG TAB PO SCH (08:40)
[2022-06-19] MEDS: AMIODARONE 200 MG TABLET PO SCH (08:40)
[2022-06-19] MEDS: METOPROLOL TARTRATE 25 MG TAB PO SCH ×2 (08:41→20:50)
[2022-06-19] MEDS: AZATHIOPRINE 50 MG TAB PO SCH (09:00)
[2022-06-19 11:27] VITALS: BP 123/49
[2022-06-19 13:14] LABS: INR 1.09 (0.85-1.15); PROTHROMBIN TIME 11.8 SEC (9.6-11.6)
[2022-06-19 16:22] VITALS: BP 119/55
[2022-06-19 20:11] VITALS: BP 121/51
[2022-06-20 00:15] VITALS: BP 120/40
[2022-06-20] MEDS: HEPARIN 25,000 UNITS/250ML D5W 250 ML IV SCH (00:29)
[2022-06-20 04:14] VITALS: BP 134/58
[2022-06-20 04:37] LABS: EOSINOPHILS % (AUTO) 1.1 % (0.0-8.0); HEMATOCRIT 21.6 % (36-48); LYMPHOCYTES % (AUTO) 36.3 % (21.0-51.0); MEAN CORPUSCULAR HEMOGLOBIN 33.5 pg (27.0-33.0); MEAN CORPUSCULAR HGB CONC 32.9 g/dL (32.0-36.0); MEAN CORPUSCULAR VOLUME 101.9 fL (79-99); MONOCYTES % (AUTO) 12.3 % (3.0-13.0); NEUTROPHILS % (AUTO) 49.9 % (40.0-77.0); PLATELET COUNT (AUTO) 159 K/uL (130-400); RED BLOOD CELL COUNT(AUTO) 2.12 MIL/uL (4.00-5.50); RED CELL DISTRIBUTION WIDTH 16.5 % (11.0-15.5); WHITE BLOOD COUNT (AUTO) 2.8 K/uL (4.8-10.8)
[2022-06-20 05:00] LABS: ALBUMIN 1.1 g/dL (3.5-5.0); CREATININE 1.1 mg/dL (0.5-1.5); MAGNESIUM 1.8 mg/dL (1.80-2.40); POTASSIUM 3.4 mmol/L (3.5-5.1)
[2022-06-20 08:00] VITALS: BP 101/50
[2022-06-20] MEDS: METOPROLOL TARTRATE 25 MG TAB PO SCH ×2 (09:00→20:00)
[2022-06-20] MEDS: AZATHIOPRINE 50 MG TAB PO SCH (09:32)
[2022-06-20] MEDS: FAMOTIDINE 20MG TAB PO SCH (09:33)
[2022-06-20] MEDS: NITROFURANTOIN MONOHYD/M-CRYST 100 MG CAPSULE PO SCH ×2 (09:33→20:00)
[2022-06-20] MEDS: FUROSEMIDE 20 MG TABLET PO SCH (09:33)
[2022-06-20] MEDS: MECLIZINE HCL 12.5 MG TABLET PO SCH ×4 (09:33→20:01)
[2022-06-20] MEDS: AMIODARONE 200 MG TABLET PO SCH (09:34)
[2022-06-20] MEDS: KCL 20 MEQ ERTAB PO PRN (11:31)
[2022-06-20 12:33] LABS: INR 1.02 (0.85-1.15); PROTHROMBIN TIME 11.1 SEC (9.6-11.6)
[2022-06-20 12:34] LABS: PARTIAL THROMBOPLASTIN TIME 47.3 SEC (26.3-35.5)
[2022-06-20] MEDS: POTASSIUM CHLORIDE 10% ELIXIR 20 MEQ/15 ML UDCUP PO PRN (15:55)
[2022-06-20 16:00] VITALS: BP 116/63
[2022-06-20 20:00] VITALS: BP 114/54
[2022-06-20] MEDS ORDERED: FOLIC ACID 1 MG TABLET PO SCH (21:00)
[2022-06-20] MEDS ORDERED: CYANOCOBALAMIN (VITAMIN B-12) 1,000 MCG TABLET PO SCH (21:00)
[2022-06-20] MEDS ORDERED: 0.9% NACL 250ML 250 ML ONE (22:50)
[2022-06-21] VITALS: BP 135/53
[2022-06-21 04:00] VITALS: BP 136/59
[2022-06-21 06:10] LABS: HEMATOCRIT 29.7 % (36-48); MEAN CORPUSCULAR HEMOGLOBIN 31.9 pg (27.0-33.0); MEAN CORPUSCULAR HGB CONC 33.7 g/dL (32.0-36.0); MEAN CORPUSCULAR VOLUME 94.9 fL (79-99); RED BLOOD CELL COUNT(AUTO) 3.13 MIL/uL (4.00-5.50); RED CELL DISTRIBUTION WIDTH 20.6 % (11.0-15.5); WHITE BLOOD COUNT (AUTO) 4.1 K/uL (4.8-10.8)
[2022-06-21 06:23] LABS: ALBUMIN 1.2 g/dL (3.5-5.0); CREATININE 1.1 mg/dL (0.5-1.5); POTASSIUM 4.2 mmol/L (3.5-5.1); PROTHROMBIN TIME 10.9 SEC (9.6-11.6); TOTAL PROTEIN, SERUM 4.1 g/dL (6.0-8.3)
[2022-06-21 06:24] LABS: PARTIAL THROMBOPLASTIN TIME 26.5 SEC (26.3-35.5)
[2022-06-21 07:30] VITALS: BP 100/42
[2022-06-21] MEDS: MECLIZINE HCL 12.5 MG TABLET PO SCH ×3 (09:00→17:00)
[2022-06-21] MEDS: FUROSEMIDE 20 MG TABLET PO SCH (09:00)
[2022-06-21] MEDS: FAMOTIDINE 20MG TAB PO SCH (09:00)
[2022-06-21] MEDS: NITROFURANTOIN MONOHYD/M-CRYST 100 MG CAPSULE PO SCH (09:00)
[2022-06-21] MEDS: APIXABAN 5 MG TABLET PO SCH ×2 (09:00→17:45)
[2022-06-21] MEDS: AMIODARONE 200 MG TABLET PO SCH (09:00)
[2022-06-21] MEDS: METOPROLOL TARTRATE 25 MG TAB PO SCH (09:00)
[2022-06-21] MEDS: AZATHIOPRINE 50 MG TAB PO SCH (09:00)
[2022-06-21 11:00] VITALS: BP 115/52
[2022-06-21] MEDS ORDERED: CYAN-52 PO (13:31)
[2022-06-21] MEDS ORDERED: FOLI1 PO (13:31)
[2022-06-21] MEDS ORDERED: NITR100C4 PO (13:31)
[2022-06-21] MEDS ORDERED: APIX5TAB PO (13:31)
[2022-06-21] MEDS ORDERED: FENTANYL CITRATE PF 50 MCG/1 ML 2ML VIAL ONE (14:20)
== END 2022-06-21 17:58 | disposition home or self-care (01) | DRG 299 ==
LOC: EDH 13:23 → EDHIP 18:38 → 4BH 21:21
PROVIDERS: ADMIT Internal Medicine; ATTEND Internal Medicine
PROC: 30233N1 Transfusion of Nonautologous Red Blood Cells into Peripheral Vein, Percutaneous Approach (ICD-10-PCS; 2022-06-20)
PROC: 079T3ZX Drainage of Bone Marrow, Percutaneous Approach, Diagnostic (ICD-10-PCS; principal; 2022-06-21)
DX: I82.432 Acute embolism and thrombosis of left popliteal vein (principal); E43 Unspecified severe protein-calorie malnutrition; N39.0 Urinary tract infection, site not specified; I50.32 Chronic diastolic (congestive) heart failure; K50.911 Crohn's disease, unspecified, with rectal bleeding; Z68.1 Body mass index [BMI] 19.9 or less, adult; E87.6 Hypokalemia; D70.9 Neutropenia, unspecified; I11.0 Hypertensive heart disease with heart failure; B96.20 Unspecified Escherichia coli [E. coli] as the cause of diseases classified elsewhere; D46.9 Myelodysplastic syndrome, unspecified; D50.9 Iron deficiency anemia, unspecified; Z80.9 Family history of malignant neoplasm, unspecified; Z82.3 Family history of stroke; Z82.49 Family history of ischemic heart disease and other diseases of the circulatory system; Z86.718 Personal history of other venous thrombosis and embolism; Z91.81 History of falling
CPT/HCPCS: 36415; 38222; 70450; 73562; 74178; 77012; 80048; 80053; 81001; 82728; 82948; 83540; 83550; 83605; 83615; 83735; 84100; 84132; 84145; 85025; 85027; 85045; 85610; 85730; 86850; 86880; 86900; 86901; 86923; 87040; 87077; 87088; 87186; 92610; 93971; 97039; G0378; J1644; J3010; J3475; J7050; J7500; P9016; Q9963; Q9967

== ENCOUNTER 2022-07-28 13:31 | Emergency (ER) | payer OTHER ==
[~2022-07-28] VITALS: Ht 154.9 cm; Wt 45.4 kg
[~2022-07-28 13:31] MED LIST changes: -ALBU8.5H8 IH; +AMIO100T4 PO; -AMIO200T44 PO; -APIX2.5T PO; +APIX5TAB PO; +AZAT50TA17 PO; +CYAN-52 PO; -DEXA6TAB PO; +FOLI1 PO; +FURO20TA6 PO; -GABA-529 PO; -HYDR-3421 PO; +MECL-226 PO; +METO25TA6 PO; +NITR100C4 PO; -PANT40TA PO
[2022-07-28 14:24] LABS: BASOPHILS % (AUTO) 0.1 % (0.0-5.0); HEMATOCRIT 31.3 % (36-48); LYMPHOCYTES % (AUTO) 10.6 % (21.0-51.0); MEAN CORPUSCULAR HGB CONC 34.5 g/dL (32.0-36.0); MEAN CORPUSCULAR VOLUME 92.9 fL (79-99); MONOCYTES % (AUTO) 5.8 % (3.0-13.0); NEUTROPHILS % (AUTO) 82.9 % (40.0-77.0); PLATELET COUNT (AUTO) 202 K/uL (130-400); RED BLOOD CELL COUNT(AUTO) 3.37 MIL/uL (4.00-5.50); RED CELL DISTRIBUTION WIDTH 16.2 % (11.0-15.5); WHITE BLOOD COUNT (AUTO) 6.7 K/uL (4.8-10.8)
[2022-07-28 14:30] VITALS: BP 125/65
[2022-07-28 14:40] LABS: CREATININE 1.4 mg/dL (0.5-1.5); POTASSIUM 3.6 mmol/L (3.5-5.1)
[2022-07-28 14:45] LABS: ALBUMIN 1.1 g/dL (3.5-5.0); TOTAL PROTEIN, SERUM 4.3 g/dL (6.0-8.3)
[2022-07-28 14:55] LABS: B-TYPE NATRIURETIC PEPTIDE 62 pg/mL (0-100)
[2022-07-28] MEDS ORDERED: 0.9%NACL 1000ML 1,000 ML IV ONE (16:30)
== END 2022-07-28 17:37 | disposition home or self-care (01) ==
LOC: EDH 13:31
DX: I82.402 Acute embolism and thrombosis of unspecified deep veins of left lower extremity (principal); E86.0 Dehydration; I10 Essential (primary) hypertension; Z79.01 Long term (current) use of anticoagulants; Z79.624 Long term (current) use of inhibitors of nucleotide synthesis; Z79.631 Long term (current) use of antimetabolite agent; Z79.899 Other long term (current) drug therapy
CPT/HCPCS: 36415; 71045; 80053; 83880; 84484; 85025; 85378; 93005; 96360

== ENCOUNTER 2022-08-03 08:52 | Emergency (ER) | payer OTHER ==
[~2022-08-03] VITALS: Ht 154.9 cm; Wt 45.4 kg
[2022-08-03 09:38] LABS: BASOPHILS % (AUTO) 0.2 % (0.0-5.0); HEMATOCRIT 31.9 % (36-48); LYMPHOCYTES % (AUTO) 9.9 % (21.0-51.0); MEAN CORPUSCULAR HEMOGLOBIN 32.4 pg (27.0-33.0); MEAN CORPUSCULAR HGB CONC 34.8 g/dL (32.0-36.0); MONOCYTES % (AUTO) 4.7 % (3.0-13.0); NEUTROPHILS % (AUTO) 84.1 % (40.0-77.0); PLATELET COUNT (AUTO) 196 K/uL (130-400); RED BLOOD CELL COUNT(AUTO) 3.43 MIL/uL (4.00-5.50); WHITE BLOOD COUNT (AUTO) 5.6 K/uL (4.8-10.8)
[2022-08-03 09:53] LABS: CREATININE 1.3 mg/dL (0.5-1.5); POTASSIUM 4.1 mmol/L (3.5-5.1)
[2022-08-03 09:59] LABS: ALBUMIN 1.1 g/dL (3.5-5.0); TOTAL PROTEIN, SERUM 4.4 g/dL (6.0-8.3)
[2022-08-03] MEDS ORDERED: 0.9%NACL 1000ML 1,000 ML IV ONE (11:30)
[2022-08-03 12:58] LABS: APPEARANCE,URINE CLEAR (CLEAR); BILIRUBIN,URINE NEGATIVE (NEGATIVE); COLOR,URINE LIGHT-YELLOW (YELLOW); GLUCOSE, URINE (UA) NEGATIVE (NEGATIVE); KETONES,URINE NEGATIVE (NEGATIVE); LEUKOCYTE ESTERASE ,URINE NEGATIVE Leu/uL (NEGATIVE); NITRATE,URINE NEGATIVE (NEGATIVE); OCCULT BLOOD,URINE NEGATIVE (NEGATIVE); PROTEIN,URINE NEGATIVE (NEGATIVE); UROBILINOGEN,URINE 0.2 mg/dL (0.2-1.0)
[2022-08-03 15:24] VITALS: BP 112/52
== END 2022-08-03 18:18 ==
LOC: EDH 08:52
DX: E86.9 Volume depletion, unspecified (principal); R53.1 Weakness; I10 Essential (primary) hypertension; K50.911 Crohn's disease, unspecified, with rectal bleeding; Z79.899 Other long term (current) drug therapy; Z98.890 Other specified postprocedural states; Z20.822 Contact with and (suspected) exposure to COVID-19
CPT/HCPCS: 99285; 96360; 71045; 87635; 82270; 84484; 82330; 80053; 83880; 85025; 86850; 86900; 86901; 87804 ×2; 81003; 36415; 93005; C9803; J7030